=== PATIENT | male | born 1935 | race Caucasian/White ===

== ENCOUNTER → 2016-11-18 | Outpatient (CLI) | payer MEDICARE, OTHER ==
[2016-11-18 10:18] LABS: ALANINE AMINOTRANSFERASE 15 U/L (21-72); ALBUMIN 4.3 g/dL (3.5-5.0); ALKALINE PHOSPHATASE 59 U/L (38-126); ANION GAP 8 (5-19); ASPARTATE AMINO TRANSFERASE 17 U/L (17-59); BILIRUBIN,TOTAL 1.2 mg/dL (0.2-1.3); BLOOD UREA NITROGEN 14 mg/dL (7-20); CALCIUM 8.6 mg/dL (8.4-10.2); CARBON DIOXIDE 30 mmol/L (22-30); CHLORIDE 106 mmol/L (98-107); CHOLESTEROL 124.33 mg/dL (0-200); CREATININE RESULT 1.16 mg/dL (0.52-1.25); Direct HDL 45 mg/dL (>40); GLUCOSE 96 mg/dL (75-110); POTASSIUM 4.8 mmol/L (3.6-5.0); SODIUM 143.8 mmol/L (137-145); TOTAL PROTEIN 6.9 g/dL (6.3-8.2); TRIGLYCERIDES 118 mg/dL (<150)
[2016-11-18 10:29] LABS: DIRECT LDL 53 mg/dL (<100)
== END ==
LOC: OD 08:20
PROVIDERS: ATTEND Internal Medicine
DX: I25.10 Atherosclerotic heart disease of native coronary artery without angina pectoris (principal); Z98.61 Coronary angioplasty status; I10 Essential (primary) hypertension; E78.4 Other hyperlipidemia; I34.0 Nonrheumatic mitral (valve) insufficiency; I35.1 Nonrheumatic aortic (valve) insufficiency; I36.1 Nonrheumatic tricuspid (valve) insufficiency; J44.9 Chronic obstructive pulmonary disease, unspecified; M15.9 Polyosteoarthritis, unspecified; G47.9 Sleep disorder, unspecified; R09.89 Other specified symptoms and signs involving the circulatory and respiratory systems; Z79.899 Other long term (current) drug therapy
CPT/HCPCS: 36415; 80053; 80061

== ENCOUNTER → 2016-12-11 | Outpatient (CLI) | payer MEDICARE, OTHER | LOC: RAD 10:45 | PROVIDERS: ATTEND Specialist | DX: I25.10 Atherosclerotic heart disease of native coronary artery without angina pectoris (principal); I10 Essential (primary) hypertension | CPT/HCPCS: 76706 ==

== ENCOUNTER → 2017-01-20 | Outpatient (CLI) | payer MEDICARE, OTHER ==
[~2017-01-20] MED LIST: ALBUTEROL SULFATE 0.083% NEB 2.5 MG/3 ML AMPUL NEB ONE
--- NOTE | 2017-01-22 13:35 | Pulmonary Function Test ---
Pulmonary Function Test Date of Procedure:: 01/20/17 INDICATION:: Dyspnea Referring Provider: Dr. Ramez Kelly Latex Dipper: Shari Chang DESK OFFICER - Report Spirometry: FVC 3.10 L 91% postbronchodilator therapy 3.14 L 92% FEV1 1.20 L 46% postbronchodilator therapy 1.16 L 44% FEV1/FVC % 39 postbronchodilator therapy 37 predicted 77 Lung Volume: Total lung capacity 5.57 L 95% Vital Capacity 3.10 L 91% IC 2.04 L FRC into 3.53 L 103% ERV 0.27 L RV 2.47 95% RV/TLC % 44 predicted 44 Diffusion Capactity: DLCO 8.1 46% DLCO/VA 2.07 62% Impression: Severe obstructive ventilatory defect with insignificant response to bronchodilator therapy. This does not preclude a clinical trial of bronchodilator therapy. No restrictive ventilatory defect. No hyperinflation. No air trapping. Severe decrease in diffusion capacity.
== END ==
LOC: RT 10:14
PROVIDERS: ATTEND Internal Medicine Pulmonary Disease
DX: J44.9 Chronic obstructive pulmonary disease, unspecified (principal); I10 Essential (primary) hypertension
CPT/HCPCS: 94729; 94727; 94060; A9270

== ENCOUNTER 2018-04-21 15:12 | Inpatient (IN) | payer MEDICARE, OTHER ==
--- NOTE | 2018-04-21 16:20 | ER Document Report ---
ED General - General Chief Complaint: General Weakness Stated Complaint: WEAKNESS Time Seen by Provider: 04/21/18 15:48 Mode of Arrival: Ambulatory Information source: Patient Notes: This is an 82-year-old man with a history of COPD, oxygen dependent, 2 L), coronary artery disease (2 stents, circumflex, RCA) who presents to the emergency room with generalized weakness, shortness of breath, dyspnea on exertion. Patient was seen in Dr. Mckeon's office and referred to the ER for concerns of possible GI bleeding. Patient does state his stools have been dark. TRAVEL OUTSIDE OF THE [place] IN LAST 30 DAYS: No - HPI Onset: Last week Onset/Duration: Gradual Quality of pain: No pain Severity: None Pain Level: Denies Associated symptoms: Shortness of breath. denies: Chest pain, Nonproductive cough, Productive cough Exacerbated by: Movement Relieved by: Remaining still Similar symptoms previously: Yes Recently seen / treated by doctor: Yes - Related Data Allergies/Adverse Reactions: amoxicillin [Amoxicillin] Allergy (Verified 07/30/11 12:59) Past Medical History - General Information source: Patient - Social History Smoking Status: Former Smoker Cigarette use (# per day): No Chew tobacco use (# tins/day): No Frequency of alcohol use: Occasional Drug Abuse: None Lives with: Spouse/Significant other Family History: None Patient has suicidal ideation: No Patient has homicidal ideation: No - Past Medical History Cardiac Medical History: Reports: Hx Hypercholesterolemia, Hx Hypertension Pulmonary Medical History: Reports: Hx COPD Renal/ Medical History: Denies: Hx Peritoneal Dialysis Past Surgical History: Reports: Hx Cardiac Catheterization - Immunizations Hx Diphtheria, Pertussis, Tetanus Vaccination: Yes Review of Systems - Review of Systems Constitutional: denies: Chills, Fever EENT: No symptoms reported Cardiovascular: Orthopnea, Dyspnea. denies: Chest pain, Palpitations Respiratory: See HPI Gastrointestinal: See HPI, Black stools. denies: Abdominal pain Genitourinary: No symptoms reported Male Genitourinary: No symptoms reported Musculoskeletal: No symptoms reported Skin: No symptoms reported Hematologic/Lymphatic: No symptoms reported Neurological/Psychological: Weakness Physical Exam - Vital signs Vitals: Pulse 90 04/21/18 15:22 Notes: Physical exam: GENERAL: 82-year-old man, alert and oriented 3, hard of hearing, does appear short of breath. HEAD: Atraumatic, normocephalic. EYES: Pupils equal round and reactive to light, extraocular movements intact, sclera anicteric, conjunctiva are normal. ENT: TMs normal, nares patent, oropharynx clear without exudates. Moist mucous membranes. NECK: Normal range of motion, supple without obvious mass or JVD. LUNGS: Breath sounds clear to auscultation bilaterally and equal. No wheezes rales or rhonchi. HEART: Regular rate and rhythm without murmurs, rubs or gallops. ABDOMEN: Soft, normoactive bowel sounds. No tenderness to palpation. No guarding, no rebound. No masses appreciated. Rectal: Dark brown stool, sent for study EXTREMITIES: Normal range of motion, no pitting or edema. No clubbing or cyanosis. NEUROLOGICAL: Cranial nerves II through XII grossly intact. Normal speech, moving all extremities. PSYCH: Normal mood, normal affect. SKIN: Warm, Dry, normal turgor, no rashes or lesions noted. Course - Vital Signs Vital signs: Temp Pulse Resp BP Pulse Ox 98.1 F 90 23 H 121/49 L 99 04/21/18 18:55 04/21/18 15:22 04/21/18 19:00 04/21/18 18:53 04/21/18 19:00 - Laboratory Result Diagrams: 04/21/18 16:05 04/21/18 16:05 Laboratory results interpreted by me: 04/21/18 04/21/18 04/21/18 16:05 16:05 16:05 WBC 10.8 H RBC 2.09 L Hgb 7.6 L Hct 22.4 L MCV 107 H MCH 36.5 H RDW 15.0 H BUN 38 H AST 16 L Crossmatch See Detail - EKG Interpretation by Me Rate: Normal Rhythm: NSR - EKG shows normal sinus rhythm with regular rate of 84, left anterior fascicular block, poor R-wave progression Critical Care Note - Critical Care Note Total time excluding time spent on procedures (mins): 60 Discharge - Discharge Clinical Impression: Dyspnea, Symptomatic anemia, GI bleed Condition: Serious Disposition: ADMITTED INPATIENT Admitting Provider: Hospitalist - Dr Samson Unit Admitted: Telemetry
[2018-04-21] MEDS ORDERED: IPRATROPIUM/ALBUTEROL 0.5-2.5 MG/3 ML AMPUL NEB ONE (16:25)
[2018-04-21 16:26] LABS: ABSOLUTE BASOPHILS # (AUTO) 0.1 10^3/uL (0.0-0.2); ABSOLUTE LYMPHOCYTES (AUTO) 2.3 10^3/uL (0.5-4.7); ABSOLUTE NEUT (AUTO) 7.4 10^3/uL (1.7-8.2); BASOPHILS % (AUTO) 0.7 % (0-2); EOSINOPHILS % (AUTO) 0.2 % (0-6); HEMATOCRIT 22.4 % (37.9-51.0); LYMPHOCYTES % (AUTO) 21.8 % (13-45); MEAN CORPUSCULAR HEMOGLOBIN 36.5 pg (27.0-33.4); MEAN CORPUSCULAR VOLUME 107 fl (80-97); MONOCYTES % (AUTO) 8.8 % (3-13); PLATELET COUNT 264 10^3/uL (150-450); RED BLOOD COUNT 2.09 10^6/uL (4.35-5.55); SEGMENTED NEUTROPHILS % (AUTO) 68.5 % (42-78); TOTAL CELLS COUNTED % (AUTO) 100 %; WHITE BLOOD COUNT 10.8 10^3/uL (4.0-10.5)
[2018-04-21 16:31] LABS: HEMOGLOBIN 7.6 g/dL (13.5-17.0)
[2018-04-21 16:39] LABS: ALANINE AMINOTRANSFERASE 21 U/L (21-72); ALBUMIN 4.1 g/dL (3.5-5.0); ALKALINE PHOSPHATASE 59 U/L (38-126); ANION GAP 15 (5-19); ASPARTATE AMINO TRANSFERASE 16 U/L (17-59); BILIRUBIN,DIRECT 0.1 mg/dL (0.0-0.4); BILIRUBIN,TOTAL 0.9 mg/dL (0.2-1.3); BLOOD UREA NITROGEN 38 mg/dL (7-20); CALCIUM 9.4 mg/dL (8.4-10.2); CARBON DIOXIDE 24 mmol/L (22-30); CHLORIDE 102 mmol/L (98-107); CREATINE KINASE 90 U/L (55-170); GLUCOSE 108 mg/dL (75-110); POTASSIUM 4.7 mmol/L (3.6-5.0); SODIUM 141.2 mmol/L (137-145); TOTAL PROTEIN 6.8 g/dL (6.3-8.2)
--- NOTE | 2018-04-21 16:46 | RADIOLOGY REPORT (SQ) ---
EXAM DESCRIPTION: CHEST SINGLE VIEW COMPLETED DATE/TIME: 04/21/2018 4:39 pm REASON FOR STUDY: sob COMPARISON: None. NUMBER OF VIEWS: One view. TECHNIQUE: Single frontal radiographic view of the chest acquired. LIMITATIONS: None. FINDINGS: LUNGS AND PLEURA: No opacities, masses or pneumothorax. No pleural effusion. Attenuated bl ood vessels and flattened marvin-diaphragms. MEDIASTINUM AND HILAR STRUCTURES: No masses. Contour normal. HEART AND VASCULAR STRUCTURES: Heart normal in size. Normal vasculature. BONES: No acute findings. HARDWARE: None in the chest. OTHER: No other significant finding. IMPRESSION: COPD. NO ACUTE RADIOGRAPHIC FINDING IN THE CHEST. TECHNICAL DOCUMENTATION: JOB ID: [id number] [employer]- All Rights Reserved Reading location - IP/workstation name: [email or web address]
[2018-04-21 16:50] LABS: CREATINE KINASE MB 0.98 ng/mL (<4.55)
[2018-04-21 16:52] LABS: TROPONIN I < 0.012 ng/mL
[2018-04-21] MEDS ORDERED: NORMAL SALINE 250 ML IV PRN ×2 (16:54)
[2018-04-21] MEDS ORDERED: PROMETHAZINE HCL INJ 25 MG/1 ML VIAL IV PRN (18:22)
[2018-04-21] MEDS ORDERED: GLUCAGON,HUMAN RECOMB 1 MG INJ SUBCUT PRN (18:22)
[2018-04-21] MEDS ORDERED: ACETAMINOPHEN 325 MG TABLET PO PRN (18:22)
[2018-04-21] MEDS ORDERED: DEXTROSE 50%-WATER 25 GM/50 ML DISP.SYRIN IV PRN ×2 (18:22)
[2018-04-21] MEDS ORDERED: DEXTROSE 40% GEL 15 GM TUBE PO PRN ×2 (18:22)
[2018-04-21] MEDS ORDERED: PANTOPRAZOLE SODIUM 40 MG VIAL IV SCH (18:30)
--- NOTE | 2018-04-21 18:40 | PDOC H&P ---
History of Present Illness Admission Date/PCP: 04/21/18 18:12 GI PHOENIX MD History of Present Illness: LOU ROJAS is a 82 year old male whose past medical history of dependent end-stage lung disease, COPD, coronary artery disease status post stent placement and hypertension presents with chief complaint of shortness of breath. For the above-mentioned complaint patient initially seen his primary care physician Dr. Mckeon who directed him to come to ER after they found his hemoglobin and hematocrits are low and was a suspicion of GI bleeding. Patient endorses shortness of breath which is getting worse and precipitated by mild exertion. He also is also dark tarry stool. He denies any nausea, sweating, cough, chest pain,. No urinary complaints he has associated dizziness but denies blurring of vision or any seizure activity. His blood work shows hemoglobin of 7.6. Past Medical History Cardiac Medical History: Reports: Hyperlipidema, Hypertension Pulmonary Medical History: Reports: Chronic Obstructive Pulmonary Disease (COPD) Hematology: Reports: Anemia Social History Smoking Status: Former Smoker Frequency of Alcohol Use: None Hx Recreational Drug Use: No Drugs: None - Advance Directive Resuscitation Status: Full Code Family History Family History: Reviewed & Not Pertinent Parental Family History Reviewed: Yes Children Family History Reviewed: Yes Sibling(s) Family History Reviewed.: Yes Medication/Allergy Home Medications: Aspirin [Aspirin 81 mg Chewable Tablet] 81 mg PO DAILY 07/30/11 Atorvastatin Calcium [Lipitor 40 Mg Tablet] 40 mg PO QHS 07/30/11 Clopidogrel Bisulfate [Plavix 75 Mg Tablet] 75 mg PO DAILY 07/30/11 Ezetimibe [Zetia 10 Mg Tablet] 10 mg PO DAILY 07/30/11 Felodipine [Plendil] 5 mg PO BID 07/30/11 Flaxseed Oil 4,000 mg PO DAILY 07/30/11 Guaifenesin [Mucinex Sr 600 Mg Tablet.Sa] 600 mg PO ASDIR PRN 07/30/11 Ipratropium/Albuterol Sulfate [Combivent Mdi 14.7 Gm Inhaler] 2 puff IH Q6 07/30 Lisinopril [Prinivil] 20 mg PO DAILY 07/30/11 Nitroglycerin [Nitro-Dur 5 mg (0.2 mg/Hr) Transdermal Patch] 1 patch TD QAM 10/09 Nitroglycerin [Nitrostat 0.4 mg (1/150 Gr) Tabs 25/Bottle] 0.4 mg SL PRN PRN 10/09 Vitamin E [Formula E] 400 unit PO DAILY 07/30/11 Allergies/Adverse Reactions: amoxicillin [Amoxicillin] Allergy (Verified 07/30/11 12:59) Review of Systems Constitutional: ABSENT: chills, fever(s), headache(s), weight gain, weight loss Eyes: ABSENT: visual disturbances Ears: ABSENT: hearing changes Cardiovascular: PRESENT: dyspnea on exertion. ABSENT: edema, orthropnea, palpitations Respiratory: ABSENT: cough, hemoptysis Gastrointestinal: PRESENT: melena. ABSENT: abdominal pain, constipation, diarrhea, hematemesis, hematochezia, nausea, vomiting Genitourinary: ABSENT: dysuria, hematuria Musculoskeletal: ABSENT: joint swelling Integumentary: ABSENT: rash, wounds Neurological: ABSENT: abnormal gait, abnormal speech, confusion, dizziness, focal weakness, syncope Psychiatric: ABSENT: anxiety, depression, homidical ideation, suicidal ideation Endocrine: ABSENT: cold intolerance, heat intolerance, polydipsia, polyuria Hematologic/Lymphatic: ABSENT: easy bleeding, easy bruising Physical Exam Vital Signs: Temp Pulse Resp BP Pulse Ox 90 94 04/21/18 15:22 04/21/18 16:12 Intake & Output 04/20/18 04/21/18 04/22/18 06:59 06:59 06:59 Weight 81.5 kg General appearance: PRESENT: hard of hearing, mild distress Eye exam: PRESENT: conjunctiva pale Mouth exam: PRESENT: dry mucosa Neck exam: ABSENT: carotid bruit, JVD, lymphadenopathy, thyromegaly Respiratory exam: PRESENT: clear to auscultation carmelita. ABSENT: rales, rhonchi, wheezes Cardiovascular exam: PRESENT: RRR. ABSENT: diastolic murmur, rubs, systolic murmur GI/Abdominal exam: PRESENT: normal bowel sounds, soft. ABSENT: distended, guarding, mass, organolmegaly, rebound, tenderness Rectal exam: PRESENT: heme (+) stool Neurological exam: PRESENT: alert, awake, oriented to time, oriented to situation Results Impressions: Chest X-Ray 04/21/18 16:12 IMPRESSION: COPD. NO ACUTE RADIOGRAPHIC FINDING IN THE CHEST. Assessment & Plan - Diagnosis (1) Acute blood loss anemia due to GI bleed Is this a current diagnosis for this admission?: Yes Plan: Patient is going to be transfused packed RBC. Daily CBC. Protonix infusion. GI consulted. (2) COPD (chronic obstructive pulmonary disease) Qualifiers: Emphysema type: unspecified Is this a current diagnosis for this admission?: Yes Plan: As needed bronchodilator. (3) Hypertension Qualifiers: Hypertension type: essential hypertension Qualified Code(s): I10 - Essential (primary) hypertension Is this a current diagnosis for this admission?: Yes Plan: Hold antihypertensive for now (4) Hyperlipidemia Qualifiers: Hyperlipidemia type: unspecified Qualified Code(s): E78.5 - Hyperlipidemia , unspecified Is this a current diagnosis for this admission?: Yes Plan: Continue home statin (5) Coronary artery disease Is this a current diagnosis for this admission?: Yes Plan: Stable no angina.
--- NOTE | 2018-04-21 19:06 | PDOC CONSULTATION ---
Consultation Consult Date: 04/21/18 Attending physician:: ELVIS KUMAR Consult reason:: melena History of Present Illness Admission Date/PCP: GI PHOEN[facility] MD History of Present Illness: LOU ROJAS is a 82 year old male Asked to see this patient who present from Dr Phoenix' office for concerns of possible GI bleeding patient has had cardiac stents placed in the past unclear if he is still on dual anticoagulant therapy, on his med list he should be on Plavix hgb is 7.2 with complaints of dark stool some SOB present, denies any chest pain is going to be admitted from the ED will need to have GI work up done after stabilization likely would need to have a PPI started possible transfusion as well patient denies any rectal bleeding has an elevated BUN to creatinine ratio also has heme positive stools I have not seen this patient prior to this, unclear if he has any sort of GI work up in the past will need to get records if needed Past Medical History Cardiac Medical History: Reports: Hyperlipidema, Hypertension Pulmonary Medical History: Reports: Chronic Obstructive Pulmonary Disease (COPD) Hematology: Reports: Anemia Social History Smoking Status: Former Smoker Family History Parental Family History Reviewed: Yes Children Family History Reviewed: Unknown Sibling(s) Family History Reviewed.: Unknown Medication/Allergy Home Medications: Aspirin [Aspirin 81 mg Chewable Tablet] 81 mg PO DAILY 07/30/11 Atorvastatin Calcium [Lipitor 40 Mg Tablet] 40 mg PO QHS 07/30/11 Clopidogrel Bisulfate [Plavix 75 Mg Tablet] 75 mg PO DAILY 07/30/11 Ezetimibe [Zetia 10 Mg Tablet] 10 mg PO DAILY 07/30/11 Felodipine [Plendil] 5 mg PO BID 07/30/11 Flaxseed Oil 4,000 mg PO DAILY 07/30/11 Guaifenesin [Mucinex Sr 600 Mg Tablet.Sa] 600 mg PO ASDIR PRN 07/30/11 Ipratropium/Albuterol Sulfate [Combivent Mdi 14.7 Gm Inhaler] 2 puff IH Q6 07/30 Lisinopril [Prinivil] 20 mg PO DAILY 07/30/11 Nitroglycerin [Nitro-Dur 5 mg (0.2 mg/Hr) Transdermal Patch] 1 patch TD QAM 10/09 Nitroglycerin [Nitrostat 0.4 mg (1/150 Gr) Tabs 25/Bottle] 0.4 mg SL PRN PRN 10/09 Vitamin E [Formula E] 400 unit PO DAILY 07/30/11 Allergies/Adverse Reactions: amoxicillin [Amoxicillin] Allergy (Verified 07/30/11 12:59) Review of Systems Constitutional: PRESENT: weakness. ABSENT: fever(s), headache(s), night sweats Eyes: ABSENT: visual disturbances Ears: ABSENT: hearing changes Nose, Mouth, and Throat: ABSENT: mouth pain, sore throat Cardiovascular: ABSENT: edema, orthropnea Respiratory: ABSENT: dyspnea, hemoptysis Gastrointestinal: PRESENT: melena. ABSENT: dysphagia, hematochezia Genitourinary: ABSENT: dysuria, hematuria Musculoskeletal: ABSENT: deformity Neurological: ABSENT: syncope, tingling, tremor(s), vertigo Endocrine: ABSENT: polydipsia, polyphagia, polyuria Hematologic/Lymphatic: ABSENT: easy bruising Physical Exam Vital Signs: Temp Pulse Resp BP Pulse Ox 90 04/21/18 15:22 General appearance: PRESENT: no acute distress, well-developed, well-nourished Head exam: PRESENT: atraumatic, normocephalic Eye exam: PRESENT: EOMI, PERRLA. ABSENT: nystagmus, periorbital swelling, scleral icterus Mouth exam: PRESENT: moist, neck supple Throat exam: ABSENT: tonsillar exudate, tonsillogmegaly Neck exam: ABSENT: meningismus, tenderness, thyromegaly Respiratory exam: PRESENT: symmetrical, unlabored. ABSENT: tachypnea, wheezes Cardiovascular exam: PRESENT: +S1, +S2 GI/Abdominal exam: PRESENT: soft. ABSENT: rebound, rigid, tenderness Extremities exam: ABSENT: joint swelling Musculoskeletal exam: PRESENT: full ROM Neurological exam: PRESENT: oriented to time, oriented to situation, CN II-XII grossly intact Focused psych exam: ABSENT: restlessness Skin exam: PRESENT: normal color. ABSENT: mottled, pallor, urticaria, vesicles Results Laboratory Results: 04/21/18 16:05 04/21/18 16:05 04/21/18 04/21/18 04/21/18 16:05 16:05 16:05 WBC 10.8 H RBC 2.09 L Hgb 7.6 L Hct 22.4 L MCV 107 H MCH 36.5 H MCHC 34.0 RDW 15.0 H Plt Count 264 Seg Neutrophils % 68.5 Lymphocytes % 21.8 Monocytes % 8.8 Eosinophils % 0.2 Basophils % 0.7 Absolute Neutrophils 7.4 Absolute Lymphocytes 2.3 Absolute Monocytes 1.0 Absolute Eosinophils 0.0 Absolute Basophils 0.1 Sodium 141.2 Potassium 4.7 Chloride 102 Carbon Dioxide 24 Anion Gap 15 BUN 38 H Creatinine 1.15 Est GFR ( Amer) > 60 Est GFR (Non-Af Amer) > 60 Glucose 108 Calcium 9.4 Total Bilirubin 0.9 AST 16 L ALT 21 Alkaline Phosphatase 59 Total Protein 6.8 Albumin 4.1 Stool Occult Blood POSITIVE 04/21/18 04/21/18 04/21/18 16:05 16:05 16:05 Creatine Kinase 90 CK-MB (CK-2) 0.98 Troponin I < 0.012 NT-Pro-B Natriuret Pep 159 Impressions: Chest X-Ray 04/21/18 16:12 IMPRESSION: COPD. NO ACUTE RADIOGRAPHIC FINDING IN THE CHEST. Assessment & Plan - Diagnosis (1) Melena Plan: agree with admission follow serial H/H low threshold for transfusion since had CAD with stents would make sure troponin is normal COPD would need to be stabilized as well has elevated BUN with normal creatinine heme positive stools as well as symptoms of dark stools would try to get old records of any previous procedure done will need EGD Risks, benefits and alternatives are discussed with the patient in detail further recommendations to follow he will need a PPI drip or oral PPI to start - Time Time Spent: 50 to 70 Minutes
[2018-04-21] MEDS: IPRATROPIUM/ALBUTEROL 0.5-2.5 MG/3 ML AMPUL NEB SCH (20:06)
--- NOTE | 2018-04-22 00:18 | EKG REPORT ---
SEVERITY:- ABNORMAL ECG - SINUS RHYTHM LEFT ANTERIOR FASCICULAR BLOCK ABNRM R PROG, CONSIDER ASMI OR LEAD PLACEMENT : Confirmed by: Lilly Willis MD 22-Apr-2018 00:17:25
[2018-04-22] MEDS: IPRATROPIUM/ALBUTEROL 0.5-2.5 MG/3 ML AMPUL NEB SCH ×3 (02:08→13:13)
[2018-04-22] MEDS ORDERED: PANTOPRAZOLE SODIUM 40 MG VIAL IV ONE (04:41)
[2018-04-22 05:14] LABS: ABSOLUTE BASOPHILS # (AUTO) 0.1 10^3/uL (0.0-0.2); ABSOLUTE LYMPHOCYTES (AUTO) 2.2 10^3/uL (0.5-4.7); ABSOLUTE MONOCYTES (AUTO) 0.8 10^3/uL (0.1-1.4); ABSOLUTE NEUT (AUTO) 4.6 10^3/uL (1.7-8.2); BASOPHILS % (AUTO) 0.9 % (0-2); EOSINOPHILS % (AUTO) 0.5 % (0-6); HEMATOCRIT 26.4 % (37.9-51.0); HEMOGLOBIN 9.1 g/dL (13.5-17.0); LYMPHOCYTES % (AUTO) 28.3 % (13-45); MEAN CORPUSCULAR HEMOGLOBIN 33.3 pg (27.0-33.4); MEAN CORPUSCULAR HGB CONC 34.6 g/dL (32.0-36.0); MONOCYTES % (AUTO) 10.3 % (3-13); PLATELET COUNT 203 10^3/uL (150-450); RED BLOOD COUNT 2.74 10^6/uL (4.35-5.55); RED CELL DISTRIBUTION WIDTH 23.3 % (11.5-14.0); TOTAL CELLS COUNTED % (AUTO) 100 %; WHITE BLOOD COUNT 7.7 10^3/uL (4.0-10.5)
[2018-04-22 05:21] LABS: MEAN CORPUSCULAR VOLUME 96 fl (80-97)
[2018-04-22 05:26] LABS: ANION GAP 10 (5-19); BLOOD UREA NITROGEN 38 mg/dL (7-20); CALCIUM 8.7 mg/dL (8.4-10.2); CARBON DIOXIDE 27 mmol/L (22-30); CHLORIDE 104 mmol/L (98-107); GLUCOSE 111 mg/dL (75-110); POTASSIUM 4.6 mmol/L (3.6-5.0); SODIUM 141.1 mmol/L (137-145)
[2018-04-22 05:48] LABS: ACANTHOCYTES SLIGHT; ANISOCYTOSIS 3+; OVALOCYTES SLIGHT; TEAR DROP CELLS SLIGHT
[2018-04-22 05:49] LABS: PLATELET COMMENT ADEQUATE
[2018-04-22] MEDS ORDERED: PROPOFOL INJ 200 MG/20 ML VIAL IV ONE (09:56)
[2018-04-22] MEDS ORDERED: FENTANYL CITRATE INJ/PF 100 MCG/2 ML AMPUL IV PRN ×3 (10:15)
[2018-04-22] MEDS ORDERED: DIPHENHYDRAMINE HCL 50 MG/ML VIAL IV PRN (10:15)
[2018-04-22] MEDS ORDERED: OXYCODONE-ACETAMINOPHEN 5-325 MG TABLET PO PRN ×2 (10:15)
[2018-04-22] MEDS ORDERED: MORPHINE SULFATE 10 MG/ML INJ IV PRN (10:15)
[2018-04-22] MEDS ORDERED: MEPERIDINE HCL/PF INJ 25 MG/1 ML DISP.SYRIN IV PRN (10:15)
[2018-04-22] MEDS ORDERED: PROMETHAZINE HCL INJ 25 MG/1 ML VIAL IV PRN ×2 (10:15)
--- NOTE | 2018-04-22 12:48 | Operative Report ---
Operative Report DATE OF SURGERY: 04/22/18 Operative Report: The risks benefits and alternatives of the procedure explained to the patient in detail and informed consent is obtained.A GIF Olympus video scope was inserted into the patient's mouth and hypopharynx, the esophagus is identified intubated and insufflated, the scope was then advanced through the esophagus stomach and duodenum, retroflexion maneuver is done ,the esophagus stomach and first and second portions of the duodenum examined PREOPERATIVE DIAGNOSIS: GI bleeding, melena POSTOPERATIVE DIAGNOSIS: Clean base esophageal ulcer; not actively bleeding. Hiatal hernia. Nodular gastritis status post biopsy. Gastric AVM, that is bleeding controlled hemorrhage done with argon plasma chinese medicine practitioner. Clean based duodenal ulcers; not actively bleeding OPERATION: EGD with control of hemorrhage. EGD with biopsy SURGEON: ELVIS KUMAR ANESTHESIA: LMAC TISSUE REMOVED OR ALTERED: As noted above. COMPLICATIONS: None. ESTIMATED BLOOD LOSS: None. INTRAOPERATIVE FINDINGS: As noted above. PROCEDURE: Patient tolerated procedure well. No immediate postprocedure comp occasions are noted. Patient sent back to his room in good condition. Diet: Clears and advance as tolerated We will wait on biopsies Continue PPI Watch H&H Transfuse as necessary Follow-up EGD in 6-8 weeks
[2018-04-22 14:32] VITALS: BP 134/64
[2018-04-22] MEDS ORDERED: PANTOPRAZOLE SODIUM 80 MG in NORMAL SALINE 100 ML IV ONE (14:45)
[2018-04-22] MEDS ORDERED: NORMAL SALINE 100 ML with PANTOPRAZOLE SODIUM 80 MG IV PRN ×2 (14:45)
--- NOTE | 2018-04-22 14:54 | PDOC DISCHARGE SUMMARY ---
General - Admit/Disc Date/PCP Admission Date/Primary Care Provider: 04/21/18 18:12 GI PHOENIX MD Discharge Date: 04/22/18 - Discharge Diagnosis (1) Acute blood loss anemia due to GI bleed Is this a current diagnosis for this admission?: Yes (2) COPD (chronic obstructive pulmonary disease) Is this a current diagnosis for this admission?: Yes (3) Hypertension Is this a current diagnosis for this admission?: Yes (4) Hyperlipidemia Is this a current diagnosis for this admission?: Yes (5) Coronary artery disease Is this a current diagnosis for this admission?: Yes - Additional Information Resuscitation Status: Full Code Home Medications: Aspirin [Aspirin 81 mg Chewable Tablet] 81 mg PO QHS 07/30/11 Atorvastatin Calcium [Lipitor 40 Mg Tablet] 40 mg PO QHS 07/30/11 Ezetimibe [Zetia 10 Mg Tablet] 10 mg PO QAM 07/30/11 Felodipine [Plendil] 5 mg PO DAILY 07/30/11 Lisinopril [Prinivil] 20 mg PO DAILY 07/30/11 Nitroglycerin [Nitro-Dur 5 mg (0.2 mg/Hr) Transdermal Patch] 1 patch TD QAM 10/09 Vitamin E [Formula E] 400 unit PO DAILY 07/30/11 Albuterol Sulfate [Proair Hfa Inhalation Aerosol 8.5 gm Mdi] 2 puff IH Q4HP PRN 04/21/18 Cyanocobalamin (Vitamin B-12) [Vitamin B-12 1000 Mcg Tablet] 1,000 mcg PO DAILY 04/21/18 Furosemide [Lasix 20 mg Tablet] 20 mg PO QAM 04/21/18 Ipratropium [place] 2 puff NASL DAILYP PRN 04/21/18 Montelukast Sodium [Singulair 10 mg Tablet] 10 mg PO QAM 04/21/18 Nitroglycerin [Nitrostat 0.4 mg (1/150 Gr) Tabs 25/Bottle] 1 tab SL Q5MP PRN Tiotropium Br/Olodaterol HCl [Stiolto Respimat Inhal [place]] 2 puff IH DAILY History of Present Illness History of Present Illness: LOU ROJAS is a 82 year old male whose past medical history of dependent end-stage lung disease, COPD, coronary artery disease status post stent placement and hypertension presents with chief complaint of shortness of breath. For the above-mentioned complaint patient initially seen his primary care physician Dr. Mckeon who directed him to come to ER after they found his hemoglobin and hematocrits are low and was a suspicion of GI bleeding. Patient endorses shortness of breath which is getting worse and precipitated by mild exertion. He also is also dark tarry stool. He denies any nausea, sweating, cough, chest pain,. No urinary complaints he has associated dizziness but denies blurring of vision or any seizure activity. His blood work shows hemoglobin of 7.6. Hospital Course Hospital Course: LOU ROJAS is a 82 year old male whose past medical history of dependent end-stage lung disease, COPD, coronary artery disease status post stent placement and hypertension presents with chief complaint of shortness of breath. For the above-mentioned complaint patient initially seen his primary care physician Dr. Mckeon who directed him to come to ER after they found his hemoglobin and hematocrits are low and was a suspicion of GI bleeding. Patient states he has melanotic stool. Stool for occult blood is positive. His hemoglobin found to be 7.6. Patient had been transfused with 2 units of PRBC. Patient also has been managed with Protonix drip. This morning he has EGD done by Dr. Ramires and he reports is a finding as clear to base esophageal ulcer. Nodular gastritis status post biopsy. Gastric AVM that is bleeding controlled hemorrhage with argon plasma director process engineering. After 2 units of PRBC now his hemoglobin is 9.1. I seen patient sitting up by the bedside chatting with his . He is not in pain or any form of distress and he is eager to go home. Dr. Rivero also cleared him for discharge. I will send him home with Protonix 40 mg p.o. daily and continue his medications. Physical Exam Vital Signs: Temp Pulse Resp BP Pulse Ox 97.8 F 86 15 134/64 H 100 04/22/18 14:28 04/22/18 14:41 04/22/18 14:28 04/22/18 14:28 04/22/18 14:28 Intake & Output 04/21/18 04/22/18 04/23/18 06:59 06:59 06:59 Intake Total 600 350 Output Total 0 Balance 600 350 Weight 81.5 kg 78.7 kg General appearance: PRESENT: no acute distress, well-developed Head exam: PRESENT: atraumatic, normocephalic Eye exam: PRESENT: conjunctiva pink. ABSENT: scleral icterus Mouth exam: PRESENT: moist Neck exam: PRESENT: carotid bruit Respiratory exam: PRESENT: clear to auscultation carmelita. ABSENT: rales, rhonchi, wheezes Cardiovascular exam: PRESENT: RRR. ABSENT: diastolic murmur, rubs, systolic murmur Pulses: PRESENT: normal dorsalis pedis pul Vascular exam: PRESENT: normal capillary refill GI/Abdominal exam: PRESENT: normal bowel sounds, soft. ABSENT: distended, guarding, mass, organolmegaly, rebound, tenderness Rectal exam: PRESENT: deferred Extremities exam: PRESENT: full ROM. ABSENT: calf tenderness, clubbing, pedal edema Neurological exam: PRESENT: alert, awake, oriented to person, oriented to place , oriented to time, oriented to situation Psychiatric exam: PRESENT: appropriate affect, normal mood Skin exam: PRESENT: dry, intact, warm. ABSENT: cyanosis, rash Results Laboratory Results: 04/22/18 04:50 04/22/18 04:50 04/22/18 04/22/18 04:50 04:50 WBC 7.7 RBC 2.74 L Hgb 9.1 L Hct 26.4 L MCV 96 D MCH 33.3 MCHC 34.6 RDW 23.3 H Plt Count 203 Seg Neutrophils % 60.0 Lymphocytes % 28.3 Monocytes % 10.3 Eosinophils % 0.5 Basophils % 0.9 Absolute Neutrophils 4.6 Absolute Lymphocytes 2.2 Absolute Monocytes 0.8 Absolute Eosinophils 0.0 Absolute Basophils 0.1 Sodium 141.1 Potassium 4.6 Chloride 104 Carbon Dioxide 27 Anion Gap 10 BUN 38 H Creatinine 1.24 Est GFR ( Amer) > 60 Est GFR (Non-Af Amer) 56 L Glucose 111 H Calcium 8.7 04/21/18 20:30 Troponin I < 0.012 Impressions: Chest X-Ray 04/21/18 16:12 IMPRESSION: COPD. NO ACUTE RADIOGRAPHIC FINDING IN THE CHEST. Qualifiers - * PATIENT BEING DISCHARGED WITH ANY OF THE FOLLOWING DIAGNOSIS: No
== END 2018-04-22 15:41 | disposition home or self-care (01) | DRG 378 ==
LOC: ER 15:12 → EH 18:12 → 3W 04-22 14:13
PROVIDERS: ADMIT Internal Medicine; ATTEND Internal Medicine
PROC: 30233N1 Transfusion of Nonautologous Red Blood Cells into Peripheral Vein, Percutaneous Approach (ICD-10-PCS; 2018-04-21)
PROC: 0W3P8ZZ Control Bleeding in Gastrointestinal Tract, Via Natural or Artificial Opening Endoscopic (ICD-10-PCS; principal; 2018-04-22 09:45)
PROC: 0DB68ZX Excision of Stomach, Via Natural or Artificial Opening Endoscopic, Diagnostic (ICD-10-PCS; 2018-04-22 09:45)
DX: K55.21 Angiodysplasia of colon with hemorrhage (principal); D62 Acute posthemorrhagic anemia; K22.10 Ulcer of esophagus without bleeding; K44.9 Diaphragmatic hernia without obstruction or gangrene; K29.60 Other gastritis without bleeding; K26.9 Duodenal ulcer, unspecified as acute or chronic, without hemorrhage or perforation; E78.5 Hyperlipidemia, unspecified; I10 Essential (primary) hypertension; J44.9 Chronic obstructive pulmonary disease, unspecified; I25.10 Atherosclerotic heart disease of native coronary artery without angina pectoris; Z87.891 Personal history of nicotine dependence; Z88.0 Allergy status to penicillin; Z79.82 Long term (current) use of aspirin; Z95.5 Presence of coronary angioplasty implant and graft
CPT/HCPCS: 36415; 36430; 43239; 43255; 71045; 731; 80048; 80053; 82272; 82550; 82553; 83880; 84484; 85025; 86850; 86900; 86901; 86920; 88305; 88342; 93005; 93010; 94640; 99291; J2704; J7620; P9016

== ENCOUNTER 2018-05-11 14:29 | Inpatient (IN) | payer MEDICARE, OTHER ==
[2018-05-11] MEDS ORDERED: NORMAL SALINE 1000 ML 1,000 ML IV ONE (15:12)
--- NOTE | 2018-05-11 15:14 | ER Document Report ---
ED Medical Screen (RME) - General Chief Complaint: Low Blood Pressure Stated Complaint: BLOOD PRESSURE ISSUES Time Seen by Provider: 05/11/18 15:08 Notes: 82-year-old male who was sent over by his dean of admissions for low blood pressure. The patient recently got out of the hospital with bleeding ulcers. Dr. Houser had done an EGD. The patient started a new medicine Dexilant on Friday. Again feeling poorly on Friday. A lot of weakness a lot of fatigue denies chest pain or shortness of breath denies abdominal pain. Patient's blood pressure was noted to be low. They called Dr. Knight the patient's dean of admissions who directed him to come to the ER with a concern he may be bleeding still internally. TRAVEL OUTSIDE OF THE [place] IN LAST 30 DAYS: No - Related Data Allergies/Adverse Reactions: amoxicillin [Amoxicillin] Allergy (Verified 04/21/18 21:50) levofloxacin [From Levaquin] Allergy (Verified 05/11/18 15:11) Past Medical History - Past Medical History Cardiac Medical History: Reports: Hx Hypercholesterolemia, Hx Hypertension Pulmonary Medical History: Reports: Hx COPD Renal/ Medical History: Denies: Hx Peritoneal Dialysis Past Surgical History: Reports: Hx Cardiac Catheterization - Immunizations Hx Diphtheria, Pertussis, Tetanus Vaccination: Yes History of Influenza Vaccine for 06/2017 - 11/2017 Season: Unknown Physical Exam - Vital signs Vitals: Temp Pulse Resp BP Pulse Ox 98.4 F 94 16 92/49 L 95 05/11/18 14:38 05/11/18 14:38 05/11/18 14:38 05/11/18 14:38 05/11/18 14:38 - Notes Notes: Abdomen is soft and supple no rebound or guarding is noted skin is multiple chronic changes. Noted patient has no unilateral motor or sensory deficits cranial nerves are intact. Course - Re-evaluation Re-evalutation: 05/11/18 15:14 We will begin a evaluation will check hemoglobin to see if it is dropped since last admission EKG enzymes. We will give him a liter of IV fluid for low blood pressure. Patient is usually very hypertensive requiring blood pressure medications however that has not been the case today he did not take his blood pressure medicines today. - Vital Signs Vital signs: Temp Pulse Resp BP Pulse Ox 98.4 F 94 16 92/49 L 95 05/11/18 14:38 05/11/18 14:38 05/11/18 14:38 05/11/18 14:38 05/11/18 14:38 Doctor's Discharge - Discharge Referrals: GI PHOENIX MD [Primary Care Provider] - Follow up as needed
--- NOTE | 2018-05-11 15:57 | ER Document Report ---
ED General - General Chief Complaint: Low Blood Pressure Stated Complaint: BLOOD PRESSURE ISSUES Time Seen by Provider: 05/11/18 15:08 TRAVEL OUTSIDE OF THE [place] IN LAST 30 DAYS: No - HPI Notes: 82-year-old male was admitted last month for GI bleed. Was initially evaluated for shortness of breath and found to have a hemoglobin of 7.6. He was transfused 2 units and hemoglobin increased to 9.1. EGD by Dr. 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 He was changed from Protonix to Dexilant which he started 2 days ago. Yesterday, he developed shaking chills and had a fever of 102. He has had generalized weakness and lightheadedness. He was found to have low blood pressure today 89/45. 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 He denies any continued bleeding in stools or melena. No nausea, abdominal pain, vomiting. Denies chest pain. He has chronic shortness of breath and cough from COPD that is unchanged. He has not had a fever today. - Related Data Allergies/Adverse Reactions: amoxicillin [Amoxicillin] Allergy (Verified 04/21/18 21:50) levofloxacin [From Levaquin] Allergy (Verified 05/11/18 15:11) Past Medical History - Social History Smoking Status: Former Smoker Frequency of alcohol use: 2 drinks a week Drug Abuse: None Family History: None Patient has suicidal ideation: No Patient has homicidal ideation: No - Past Medical History Cardiac Medical History: Reports: Hx Hypercholesterolemia, Hx Hypertension Pulmonary Medical History: Reports: Hx COPD Renal/ Medical History: Denies: Hx Peritoneal Dialysis Past Surgical History: Reports: Hx Cardiac Catheterization - Immunizations Hx Diphtheria, Pertussis, Tetanus Vaccination: Yes Physical Exam - Vital signs Vitals: Temp Pulse Resp BP Pulse Ox 98.4 F 94 16 92/49 L 95 05/11/18 14:38 05/11/18 14:38 05/11/18 14:38 05/11/18 14:38 05/11/18 14:38 Course - Re-evaluation Re-evalutation: 05/11/18 17:00 Patient has leukocytosis and mild elevation of lactic acid at 2.4. X-ray shows bilateral infiltrates, worse on the left. Treated with Rocephin and Zithromax. Fluids ordered. Blood pressure improved. Discussed with hospitalist for admission. Patient and spouse updated. - Vital Signs Vital signs: Temp Pulse Resp BP Pulse Ox 98.4 F 94 16 92/49 L 95 05/11/18 14:38 05/11/18 14:38 05/11/18 14:38 05/11/18 14:38 05/11/18 14:38 - Laboratory Result Diagrams: 05/11/18 15:45 05/11/18 15:45 Laboratory results interpreted by me: 05/11/18 05/11/18 05/11/18 15:45 15:45 15:45 WBC 14.6 H RBC 2.88 L Hgb 9.0 L Hct 27.5 L RDW 19.0 H Seg Neutrophils % 80.3 H Lymphocytes % 10.8 L Absolute Neutrophils 11.7 H BUN 23 H Creatinine 1.41 H Est GFR ( Amer) 58 L Est GFR (Non-Af Amer) 48 L Glucose 114 H Lactic Acid 2.4 H Total Bilirubin 2.0 H AST 14 L ALT 11 L Discharge - Discharge Clinical Impression: Sepsis Qualifiers: Sepsis type: sepsis due to unspecified organism Qualified Code(s): A41.9 - Sepsis, unspecified organism Pneumonia Qualifiers: Pneumonia type: due to unspecified organism Laterality: bilateral Lung location : unspecified part of lung Qualified Code(s): J18.9 - Pneumonia, unspecified organism Condition: Fair Disposition: ADMITTED INPATIENT Admitting Provider: Hospitalist Unit Admitted: IMCU Referrals: GI PHOENIX MD [Primary Care Provider] - Follow up as needed
--- NOTE | 2018-05-11 16:11 | RADIOLOGY REPORT (SQ) ---
EXAM DESCRIPTION: CHEST 2 VIEWS COMPLETED DATE/TIME: 05/11/2018 4:02 pm REASON FOR STUDY: fever, sepsis COMPARISON: 05/04/2011 EXAM PARAMETERS: NUMBER OF VIEWS: two views TECHNIQUE: Digital Frontal and Lateral radiographic views of the chest acquired. RADIATION DOSE: NA LIMITATIONS: none FINDINGS: LUNGS AND PLEURA: Multifocal airspace and interstitial disease in the mid-lower lung zone s bilaterally, more so on the left. Considerations for these findings include infiltrates. No pneum othorax or pleural effusion. MEDIASTINUM AND HILAR STRUCTURES: No masses or contour abnormalities. HEART AND VASCULAR STRUCTURES: Heart normal size. No evidence for failure. BONES: No acute findings. HARDWARE: None in the chest. OTHER: No other significant finding. IMPRESSION: 1 Multifocal patchy airspace and interstitial disease in the mid-lower lung zones, more so on the left, findings suggest infiltrates. TECHNICAL DOCUMENTATION: JOB ID: [id number] [email or web address]- All Rights Reserved Reading location - IP/workstation name: [email or web address]
[2018-05-11 16:25] LABS: ABSOLUTE BASOPHILS # (AUTO) 0.1 10^3/uL (0.0-0.2); ABSOLUTE LYMPHOCYTES (AUTO) 1.6 10^3/uL (0.5-4.7); ABSOLUTE MONOCYTES (AUTO) 1.2 10^3/uL (0.1-1.4); ABSOLUTE NEUT (AUTO) 11.7 10^3/uL (1.7-8.2); BASOPHILS % (AUTO) 0.4 % (0-2); EOSINOPHILS % (AUTO) 0.1 % (0-6); HEMATOCRIT 27.5 % (37.9-51.0); LYMPHOCYTES % (AUTO) 10.8 % (13-45); MEAN CORPUSCULAR HEMOGLOBIN 31.3 pg (27.0-33.4); MEAN CORPUSCULAR HGB CONC 32.8 g/dL (32.0-36.0); MEAN CORPUSCULAR VOLUME 95 fl (80-97); MONOCYTES % (AUTO) 8.4 % (3-13); PLATELET COUNT 256 10^3/uL (150-450); RED BLOOD COUNT 2.88 10^6/uL (4.35-5.55); SEGMENTED NEUTROPHILS % (AUTO) 80.3 % (42-78); TOTAL CELLS COUNTED % (AUTO) 100 %; WHITE BLOOD COUNT 14.6 10^3/uL (4.0-10.5)
[2018-05-11 16:26] LABS: INTERNATIONAL RATION (INR) 1.09; PROTHROMBIN TIME 14.7 SEC (11.4-15.4)
[2018-05-11 16:27] LABS: PARTIAL THROMBOPLASTIN TIME 35.4 SEC (23.5-35.8)
[2018-05-11 16:46] LABS: ALANINE AMINOTRANSFERASE 11 U/L (21-72); ALBUMIN 4.1 g/dL (3.5-5.0); ALKALINE PHOSPHATASE 60 U/L (38-126); ANION GAP 14 (5-19); ASPARTATE AMINO TRANSFERASE 14 U/L (17-59); BILIRUBIN,DIRECT 0.3 mg/dL (0.0-0.4); BLOOD UREA NITROGEN 23 mg/dL (7-20); CALCIUM 8.7 mg/dL (8.4-10.2); CARBON DIOXIDE 25 mmol/L (22-30); CHLORIDE 99 mmol/L (98-107); CREATINE KINASE 71 U/L (55-170); GLUCOSE 114 mg/dL (75-110); POTASSIUM 4.3 mmol/L (3.6-5.0); SODIUM 137.5 mmol/L (137-145)
[2018-05-11] MEDS ORDERED: AZITHROMYCIN INJ 500 MG VIAL IV ONE (16:50)
[2018-05-11] MEDS ORDERED: CEFTRIAXONE 1 GM/D5W RTU 50 ML IV ONE (16:50)
[2018-05-11] MEDS ORDERED: ACETAMINOPHEN 325 MG TABLET PO PRN (17:10)
[2018-05-11] MEDS ORDERED: VANCOMYCIN HCL INJ 1000 MG VIAL IV ONE (17:16)
[2018-05-11] MEDS ORDERED: NITROGLYCERIN 0.4 MG/TAB 25 TAB/BOTTLE SL PRN (17:17)
--- NOTE | 2018-05-11 17:54 | PDOC H&P ---
History of Present Illness Admission Date/PCP: 05/11/18 17:08 IG PHOENIX MD Patient complains of: Rigors, fevers, shortness of breath, and cough. History of Present Illness: LOU ROJAS is a 82 year old male Past Medical History Cardiac Medical History: Reports: Hyperlipidema, Hypertension Pulmonary Medical History: Reports: Chronic Obstructive Pulmonary Disease (COPD) GI Medical History: Reports: Gastroesophageal Reflux Disease, Other - hemorrhagic AVM;s Hematology: Reports: Anemia Past Surgical History Past Surgical History: Reports: Cardiac Catheterization Social History Smoking Status: Former Smoker Frequency of Alcohol Use: Occasional Hx Recreational Drug Use: No Drugs: None Family History Family History: None Parental Family History Reviewed: Yes Children Family History Reviewed: Yes Sibling(s) Family History Reviewed.: Yes Medication/Allergy Home Medications: Atorvastatin Calcium [Lipitor 40 mg Tablet] 40 mg PO QHS 07/30/11 Ezetimibe [Zetia 10 mg Tablet] 10 mg PO QAM 07/30/11 Felodipine [Plendil] 5 mg PO DAILY 07/30/11 Lisinopril [Prinivil 20 mg Tablet] 20 mg PO DAILY 07/30/11 Nitroglycerin [Nitro-Dur 5 mg (0.2 mg/Hr) Transdermal Patch] 1 patch TD QAM 10/09 Vitamin E [Formula E] 400 unit PO DAILY 07/30/11 Albuterol Sulfate [Proair HFA Inhalation Aerosol 8.5 gm MDI] 2 puff IH Q4HP PRN 04/21/18 Cyanocobalamin (Vitamin B-12) [Vitamin B-12 1000 mcg Tablet] 1,000 mcg PO DAILY 04/21/18 Furosemide [Lasix 20 mg Tablet] 20 mg PO QAM 04/21/18 Ipratropium [place] 2 puff NASL DAILYP PRN 04/21/18 Montelukast Sodium [Singulair 10 mg Tablet] 10 mg PO QAM 04/21/18 Nitroglycerin [Nitrostat 0.4 mg (1/150 Gr) Tabs 25/Bottle] 1 tab SL Q5MP PRN Tiotropium Br/Olodaterol HCl [Stiolto Respimat Inhal Jay] 2 puff IH DAILY Pantoprazole Sodium [Protonix] 40 mg PO DULCE MARIAFSMeet #30 tablet. 04/22/18 Allergies/Adverse Reactions: amoxicillin [Amoxicillin] Allergy (Verified 04/21/18 21:50) levofloxacin [From Levaquin] Allergy (Verified 05/11/18 15:11) Review of Systems Constitutional: PRESENT: chills, fever(s), night sweats, weakness Eyes: ABSENT: visual disturbances Ears: ABSENT: hearing changes Nose, Mouth, and Throat: ABSENT: headache(s), sore throat, vertigo Cardiovascular: ABSENT: chest pain, dyspnea on exertion, edema, palpitations Respiratory: PRESENT: cough, dyspnea. ABSENT: sputum Gastrointestinal: PRESENT: heartburn, other - One episode of severe GERD Friday night with coughing and likely aspiration.. ABSENT: diarrhea, hematemesis, hematochezia, melena, nausea, vomiting Musculoskeletal: ABSENT: deformity, joint swelling, muscle weakness Integumentary: ABSENT: lesions, rash, wounds Neurological: ABSENT: dizziness, focal weakness, lack of coordination, numbness , paresthesias, syncope, weakness Psychiatric: ABSENT: anxiety, depression, hallucinations Endocrine: ABSENT: cold intolerance, polyphagia, polyuria Physical Exam Vital Signs: Temp Pulse Resp BP Pulse Ox 98.4 F 94 25 H 108/54 L 95 05/11/18 14:38 05/11/18 14:38 05/11/18 17:01 05/11/18 17:01 05/11/18 17:01 General appearance: PRESENT: no acute distress, cooperative, hard of hearing, well-developed, well-nourished, other - The patient is awake, alert, and oriented x 3. No acute distress. Head exam: PRESENT: atraumatic, normocephalic Eye exam: PRESENT: EOMI, PERRLA, other - No scleral injection.. ABSENT: scleral icterus Ear exam: PRESENT: normal external ear exam. ABSENT: bleeding, drainage Mouth exam: PRESENT: dry mucosa, neck supple, tongue midline Throat exam: ABSENT: post pharyngeal erythema, tonsillar erythema, tonsillar exudate, tonsillogmegaly Neck exam: PRESENT: carotid bruit. ABSENT: JVD, lymphadenopathy, meningismus, tenderness, thyromegaly Respiratory exam: PRESENT: rales - bases bilaterally., other - No increased work of breathing.. ABSENT: crackles, rhonchi, wheezes Cardiovascular exam: PRESENT: RRR. ABSENT: gallop, rubs, systolic murmur Pulses: PRESENT: other - Diminished distal pulses. GI/Abdominal exam: PRESENT: mass, normal bowel sounds, soft. ABSENT: hernia, organolmegaly, tenderness Rectal exam: PRESENT: deferred Extremities exam: ABSENT: clubbing, pedal edema, tenderness Musculoskeletal exam: PRESENT: normal inspection. ABSENT: deformity, dislocation Neurological exam: PRESENT: alert, awake, oriented to person, oriented to place , oriented to time, oriented to situation Psychiatric exam: PRESENT: appropriate affect, normal mood Skin exam: PRESENT: dry, intact, warm Results Laboratory Results: 05/11/18 05/11/18 05/11/18 15:45 15:45 15:45 WBC 14.6 H RBC 2.88 L Hgb 9.0 L Hct 27.5 L MCV 95 MCH 31.3 MCHC 32.8 RDW 19.0 H Plt Count 256 Seg Neutrophils % 80.3 H Lymphocytes % 10.8 L Absolute Neutrophils 11.7 H PT 14.7 INR 1.09 APTT 35.4 Sodium 137.5 Potassium 4.3 Chloride 99 Carbon Dioxide 25 Anion Gap 14 BUN 23 H Creatinine 1.41 H Glucose 114 H Lactic Acid Calcium 8.7 Total Bilirubin 2.0 H Direct Bilirubin 0.3 AST 14 L ALT 11 L Alkaline Phosphatase 60 Creatine Kinase 71 Troponin I Total Protein 7.0 Albumin 4.1 05/11/18 05/11/18 15:45 15:45 WBC RBC Hgb Hct MCV MCH MCHC RDW Plt Count Seg Neutrophils % Lymphocytes % Absolute Neutrophils PT INR APTT Sodium Potassium Chloride Carbon Dioxide Anion Gap BUN Creatinine Glucose Lactic Acid 2.4 H Calcium Total Bilirubin Direct Bilirubin AST ALT Alkaline Phosphatase Creatine Kinase Troponin I < 0.012 Total Protein Albumin Impressions: Chest X-Ray 05/11/18 15:38 IMPRESSION: 1 Multifocal patchy airspace and interstitial disease in the mid- lower lung zones, more so on the left, findings suggest infiltrates. Assessment & Plan - Diagnosis (1) Hyperbilirubinemia Is this a current diagnosis for this admission?: Yes Plan: Monitor. (2) Pneumonia Qualifiers: Pneumonia type: due to unspecified organism Laterality: bilateral Lung location: unspecified part of lung Qualified Code(s): J18.9 - Pneumonia, unspecified organism Is this a current diagnosis for this admission?: Yes Plan: cover for HCPA organisms as the patient was just discharged from the hospital. Zosyn will also cover for possible aspiration pneumonia. (3) Sepsis Qualifiers: Sepsis type: sepsis due to unspecified organism Qualified Code(s): A41.9 - Sepsis, unspecified organism Is this a current diagnosis for this admission?: Yes Plan: Follow lactic acid. Aggressive IV fluid resuscitation. (4) Coronary artery disease Is this a current diagnosis for this admission?: Yes Plan: continue home medications. (5) Hyperlipidemia Qualifiers: Hyperlipidemia type: unspecified Qualified Code(s): E78.5 - Hyperlipidemia , unspecified Is this a current diagnosis for this admission?: Yes Plan: Statin as at home. (6) Hypertension Qualifiers: Hypertension type: essential hypertension Qualified Code(s): I10 - Essential (primary) hypertension Is this a current diagnosis for this admission?: Yes Plan: Continue home medications. (7) COPD exacerbation Is this a current diagnosis for this admission?: Yes Plan: Nebs and steroids. (8) HCAP (healthcare-associated pneumonia) Is this a current diagnosis for this admission?: Yes Plan: IV vancomycin and zosyn. - Time Time Spent: Greater than 70 Minutes Medications reviewed and adjusted accordingly: Yes - Inpatient Certification Based on my medical assessment, after consideration of the patient's comorbidities, presenting symptoms, or acuity I expect that the services needed warrant INPATIENT care.: Yes I certify that my determination is in accordance with my understanding of Medicare's requirements for reasonable and necessary INPATIENT services [42 CFR 412.3e].: Yes Medical Necessity: Need Close Monitoring Due to Risk of Patient Decompensation, Need for Nebulizer Therapy and Monitoring of Response, Need for IV Antibiotics
[2018-05-11] MEDS ORDERED: CEFTRIAXONE INJ 1000 MG VIAL IV ONE (18:00)
[2018-05-11 18:11] LABS: VENOUS BLOOD BASE EXCESS 1.2 mmol/L; VENOUS BLOOD HCO3 27.1 mmol/L (20-32); VENOUS BLOOD PH 7.35 (7.30-7.42)
[2018-05-11] MEDS: PIPERACILLIN SODIUM/TAZOBACTAM 3.375 GM in NORMAL SALINE 100 ML IV SCH (18:35)
[2018-05-11 20:06] LABS: APPEARANCE,URINE CLEAR; BILIRUBIN,URINE NEGATIVE (NEGATIVE); COLOR,URINE STRAW; GLUCOSE, URINE NEGATIVE (NEGATIVE); KETONES,URINE NEGATIVE (NEGATIVE); LEUKOCYTE ESTERASE,URINE NEGATIVE (NEGATIVE); NITRITE,URINE NEGATIVE (NEGATIVE); PROTEIN,URINE NEGATIVE (NEGATIVE); URINE SPECIFIC GRAVITY 1.008; UROBILINOGEN,URINE NEGATIVE mg/dL (<2.0)
--- NOTE | 2018-05-11 20:38 | EKG REPORT ---
SEVERITY:- ABNORMAL ECG - SINUS RHYTHM LEFT ANTERIOR FASCICULAR BLOCK : Confirmed by: Henry Garner MD 11-May-2018 20:38:06
[2018-05-11] MEDS ORDERED: CEFTRIAXONE INJ 1000 MG VIAL ONE (21:07)
[2018-05-11] MEDS: VANCOMYCIN HCL 750 MG in DEXTROSE 5%-WATER 250 ML IV SCH (22:01)
[2018-05-11] MEDS: GUAIFENESIN 600 MG TABLET.SA PO SCH (22:01)
[2018-05-11] MEDS: ATORVASTATIN CALCIUM 40 MG TABLET PO SCH (22:01)
[2018-05-11] MEDS: HYDROCORTISONE SOD SUCCINATE INJ/PF 100 MG/2 ML SDV IV SCH (22:02)
[2018-05-12] MEDS: PIPERACILLIN SODIUM/TAZOBACTAM 3.375 GM in NORMAL SALINE 100 ML IV SCH ×4 (01:15→17:14)
[2018-05-12 02:39] LABS: ABSOLUTE LYMPHOCYTES (AUTO) 1.5 10^3/uL (0.5-4.7); ABSOLUTE MONOCYTES (AUTO) 0.6 10^3/uL (0.1-1.4); ABSOLUTE NEUT (AUTO) 9.8 10^3/uL (1.7-8.2); BASOPHILS % (AUTO) 0.3 % (0-2); EOSINOPHILS % (AUTO) 0.1 % (0-6); HEMATOCRIT 24.9 % (37.9-51.0); HEMOGLOBIN 8.3 g/dL (13.5-17.0); LYMPHOCYTES % (AUTO) 12.7 % (13-45); MEAN CORPUSCULAR HEMOGLOBIN 31.4 pg (27.0-33.4); MEAN CORPUSCULAR HGB CONC 33.3 g/dL (32.0-36.0); MEAN CORPUSCULAR VOLUME 94 fl (80-97); MONOCYTES % (AUTO) 4.8 % (3-13); PLATELET COUNT 212 10^3/uL (150-450); RED BLOOD COUNT 2.65 10^6/uL (4.35-5.55); RED CELL DISTRIBUTION WIDTH 18.9 % (11.5-14.0); SEGMENTED NEUTROPHILS % (AUTO) 82.1 % (42-78); TOTAL CELLS COUNTED % (AUTO) 100 %; WHITE BLOOD COUNT 11.9 10^3/uL (4.0-10.5)
[2018-05-12 03:01] LABS: ALANINE AMINOTRANSFERASE 15 U/L (21-72); ALBUMIN 3.5 g/dL (3.5-5.0); ALKALINE PHOSPHATASE 56 U/L (38-126); ANION GAP 13 (5-19); ASPARTATE AMINO TRANSFERASE 13 U/L (17-59); BILIRUBIN,DIRECT 0.3 mg/dL (0.0-0.4); BILIRUBIN,TOTAL 1.7 mg/dL (0.2-1.3); BLOOD UREA NITROGEN 22 mg/dL (7-20); CALCIUM 8.4 mg/dL (8.4-10.2); CARBON DIOXIDE 24 mmol/L (22-30); CHLORIDE 108 mmol/L (98-107); GLUCOSE 145 mg/dL (75-110); POTASSIUM 5.2 mmol/L (3.6-5.0); SODIUM 145.1 mmol/L (137-145); TOTAL PROTEIN 6.5 g/dL (6.3-8.2)
[2018-05-12] MEDS: HYDROCORTISONE SOD SUCCINATE INJ/PF 100 MG/2 ML SDV IV SCH ×3 (05:12→21:40)
[2018-05-12] MEDS: MONTELUKAST SODIUM 10 MG TABLET PO SCH (08:26)
[2018-05-12] MEDS: LANSOPRAZOLE 30 MG TAB.RAP.DR PO SCH (08:26)
[2018-05-12] MEDS: NITROGLYCERIN 5 MG (0.2 MG/HR) PATCH.TD24 TD SCH (08:26)
[2018-05-12] MEDS: EZETIMIBE 10 MG TABLET PO SCH (08:26)
[2018-05-12] MEDS: VANCOMYCIN HCL 750 MG in DEXTROSE 5%-WATER 250 ML IV SCH ×2 (09:54→21:40)
[2018-05-12] MEDS: GUAIFENESIN 600 MG TABLET.SA PO SCH ×2 (09:54→21:41)
[2018-05-12] MEDS: VITAMIN E (DL, ACETATE) 400 UNIT CAPSULE PO SCH (09:55)
[2018-05-12] MEDS: CYANOCOBALAMIN (VITAMIN B-12) 1,000 MCG TABLET PO SCH (09:55)
[2018-05-12] MEDS ORDERED: VITAMIN E 400 UNIT PO SCH (10:00)
[2018-05-12] MEDS ORDERED: (PENDING PHARMACY ID) (Tiotropium Br/Olodaterol Hcl [Stiolto Respimat Inhal Spray] 2 PUFF) IH SCH (10:00)
--- NOTE | 2018-05-12 18:00 | Progress Note ---
Provider Note Provider Note: ID Consult Note Asked to review patient's chart by Pharmacy. Mr. Peres is an 82 year old man with PMH including COPD who is admitted to [facility] after presenting to the ED on 05/11/18 with c/o generalized weakness, fatigue and reported fever at home to 102 F with shaking chills the day prior to presentation. Pt also admitted to having cough and SOB, although according to the ED provider note, this was not changed from the patient's baseline. The patient had a recent prior admission for GI bleeding and had a duodenal ulcer and bleeding gastric AVM found. Pt was initially hypotensive. He was found to have bibasilar rales on exam. As an inpatient he has been afebrile. His WBC count was 14.6k on presentation. His creatinine is 1.4. His lactic acid was elevated on presentation at 2.4. He has blood cultures that are in process. His CXR showed multifocal patchy airspace and interstitial infiltrates L>R in mid-lower lung zones. The patient is currently receiving IV vancomycin and Zosyn. Impression/Recommendations Pneumonia, healthcare associated - Pt has had previous hospitalization recently and has also COPD. However, he did not receive IV antibiotics in the last 90 days (unless he had been hospitalized elsewhere and received IV antibiotics at another hospital). Receiving IV antibiotics in the last 90 days is a recognized risk factor for pneumonia drug-resistant organisms. - If he has not received IV antibiotics elsewhere in the last 90 days and blood cultures do not grow MRSA (usually growth would be expected in the first 48h), then vancomycin should be able to be discontinued. - Prior IV antibiotic exposure and structural lung disease may predispose patients to having increased risk for colonization and infection with Pseudomonas. Again, as reviewed with Pharmacy, pt did not receive IV antibiotics in the past 90 days, but on the basis of the patient having COPD, it is not unreasonable to include antipseudomonal active therapy in empiric treatment of pneumonia. - Of course, if sputum can be submitted for gram stain and culture early on in the hospital course, prior to pt receiving much antibiotic exposure, this may help target therapy. - Other studies that might be helpful depending on lab availability / turn- around time: MRSA nasal screen has high negative predictive value against MRSA pneumonia being present. If MRSA nasal screen is positive, it does not have good predictive value (can have MRSA nasal colonization without MRSA lower respiratory tract involvement, but it is unlikely to have MRSA pneumonia without MRSA nasopharyngeal colonization). Urine Strep pneumo antigen has variable sensitivity (has been estimated to be around 50-80% or so) but good specificity, so it is helpful when positive but not when negative. If either test is a send-out, it is not likely to be back in time to make a difference in patient care. Bao Santos MD [facility] Infectious Diseases pager [phone]
--- NOTE | 2018-05-12 18:04 | PDOC PROGRESS REPORT ---
Subjective Progress Note for:: 05/12/18 Subjective:: This is 82 years old male patient presented to [facility] with chief complaint of fever with T-max of 102, shaking chills and shortness of breath. His chest x-ray showed bilateral consolidation which is markedly on the left lung. Patient was recently discharged from this hospital after he was treated for upper GI bleeding due to gastric AVM. This morning I seen patient sitting up by the bedside. He is awake alert and oriented. He is in mild distress. Reason For Visit: SEPSIS,PNEUMONIA,RESPIRATORY FAILURE Physical Exam Vital Signs: Temp Pulse Resp BP Pulse Ox 98.1 F 74 16 147/56 H 97 05/12/18 11:06 05/12/18 14:00 05/12/18 11:06 05/12/18 11:06 05/12/18 11:06 Intake & Output 05/11/18 05/12/18 05/13/18 06:59 06:59 06:59 Intake Total 950 100 Balance 950 100 Weight 77.3 kg General appearance: PRESENT: mild distress Head exam: PRESENT: atraumatic, normocephalic Eye exam: PRESENT: conjunctiva pink Mouth exam: PRESENT: moist Neck exam: ABSENT: carotid bruit, JVD, lymphadenopathy, thyromegaly Respiratory exam: PRESENT: crackles, decreased breath sounds, rhonchi Cardiovascular exam: PRESENT: RRR. ABSENT: diastolic murmur, rubs, systolic murmur Pulses: PRESENT: normal dorsalis pedis pul GI/Abdominal exam: PRESENT: normal bowel sounds, soft. ABSENT: distended, guarding, mass, organolmegaly, rebound, tenderness Extremities exam: PRESENT: full ROM. ABSENT: calf tenderness, clubbing, pedal edema Neurological exam: PRESENT: alert, awake, oriented to time, oriented to situation Psychiatric exam: PRESENT: normal mood Results Laboratory Results: 05/12/18 02:30 05/12/18 02:30 05/11/18 05/11/18 05/11/18 17:36 19:30 20:00 WBC RBC Hgb Hct MCV MCH MCHC RDW Plt Count Seg Neutrophils % Lymphocytes % Monocytes % Eosinophils % Basophils % Absolute Neutrophils Absolute Lymphocytes Absolute Monocytes Absolute Eosinophils Absolute Basophils VBG pH 7.35 VBG pCO2 50.0 VBG HCO3 27.1 VBG Base Excess 1.2 Sodium Potassium Chloride Carbon Dioxide Anion Gap BUN Creatinine Est GFR ( Amer) Est GFR (Non-Af Amer) Glucose Lactic Acid 1.0 Calcium Total Bilirubin AST ALT Alkaline Phosphatase Total Protein Albumin Urine Color STRAW Urine Appearance CLEAR Urine pH 5.0 Ur Specific [place] 1.008 Urine Protein NEGATIVE Urine Glucose (UA) NEGATIVE Urine Ketones NEGATIVE Urine Blood SMALL H Urine Nitrite NEGATIVE Ur Leukocyte Esterase NEGATIVE Urine WBC (Auto) 1 Urine RBC (Auto) 0 05/12/18 05/12/18 05/12/18 02:30 02:30 02:30 WBC 11.9 H RBC 2.65 L Hgb 8.3 L Hct 24.9 L MCV 94 MCH 31.4 MCHC 33.3 RDW 18.9 H Plt Count 212 Seg Neutrophils % 82.1 H Lymphocytes % 12.7 L Monocytes % 4.8 Eosinophils % 0.1 Basophils % 0.3 Absolute Neutrophils 9.8 H Absolute Lymphocytes 1.5 Absolute Monocytes 0.6 Absolute Eosinophils 0.0 Absolute Basophils 0.0 VBG pH VBG pCO2 VBG HCO3 VBG Base Excess Sodium 145.1 H Potassium 5.2 H Chloride 108 H Carbon Dioxide 24 Anion Gap 13 BUN 22 H Creatinine 1.37 H Est GFR ( Amer) > 60 Est GFR (Non-Af Amer) 50 L Glucose 145 H Lactic Acid 2.0 Calcium 8.4 Total Bilirubin 1.7 H AST 13 L ALT 15 L Alkaline Phosphatase 56 Total Protein 6.5 Albumin 3.5 Urine Color Urine Appearance Urine pH Ur Specific [place] Urine Protein Urine Glucose (UA) Urine Ketones Urine Blood Urine Nitrite Ur Leukocyte Esterase Urine WBC (Auto) Urine RBC (Auto) Impressions: Chest X-Ray 05/11/18 15:38 IMPRESSION: 1 Multifocal patchy airspace and interstitial disease in the mid- lower lung zones, more so on the left, findings suggest infiltrates. Assessment & Plan - Diagnosis (1) HCAP (healthcare-associated pneumonia) Is this a current diagnosis for this admission?: Yes Plan: Continue current antibiotics regimen (2) Sepsis Qualifiers: Sepsis type: sepsis due to unspecified organism Qualified Code(s): A41.9 - Sepsis, unspecified organism Is this a current diagnosis for this admission?: Yes Plan: Due to #1 (3) Mildly elevated liver chemistry Is this a current diagnosis for this admission?: Yes Plan: Most probably related to his sepsis. (4) COPD exacerbation Is this a current diagnosis for this admission?: Yes Plan: Continue bronchodilators. (5) Hypertension Qualifiers: Hypertension type: essential hypertension Qualified Code(s): I10 - Essential (primary) hypertension Is this a current diagnosis for this admission?: Yes Plan: Continue home medication (6) Coronary artery disease Qualifiers: Coronary Disease-Associated Artery/Lesion type: [place] artery Is this a current diagnosis for this admission?: Yes Plan: Continue home medications. (7) Hyperlipidemia Qualifiers: Hyperlipidemia type: unspecified Qualified Code(s): E78.5 - Hyperlipidemia , unspecified Is this a current diagnosis for this admission?: Yes Plan: Continue home medications.
[2018-05-12] MEDS: ATORVASTATIN CALCIUM 40 MG TABLET PO SCH (21:41)
[2018-05-12] MEDS ORDERED: LACTULOSE SYRUP 20 GM/30 ML UDCUP PO ONE ×2 (22:15→22:30)
[2018-05-13] MEDS: PIPERACILLIN SODIUM/TAZOBACTAM 3.375 GM in NORMAL SALINE 100 ML IV SCH ×5 (01:03→23:37)
[2018-05-13 05:42] LABS: ANION GAP 13 (5-19); BLOOD UREA NITROGEN 21 mg/dL (7-20); CALCIUM 8.7 mg/dL (8.4-10.2); CARBON DIOXIDE 25 mmol/L (22-30); CHLORIDE 106 mmol/L (98-107); GLUCOSE 116 mg/dL (75-110); POTASSIUM 4.4 mmol/L (3.6-5.0); SODIUM 143.9 mmol/L (137-145)
[2018-05-13] MEDS: HYDROCORTISONE SOD SUCCINATE INJ/PF 100 MG/2 ML SDV IV SCH ×3 (05:43→21:37)
[2018-05-13] MEDS: EZETIMIBE 10 MG TABLET PO SCH (09:59)
[2018-05-13] MEDS: MONTELUKAST SODIUM 10 MG TABLET PO SCH (09:59)
[2018-05-13] MEDS: NITROGLYCERIN 5 MG (0.2 MG/HR) PATCH.TD24 TD SCH (10:00)
[2018-05-13] MEDS: CYANOCOBALAMIN (VITAMIN B-12) 1,000 MCG TABLET PO SCH (10:00)
[2018-05-13] MEDS: VITAMIN E (DL, ACETATE) 400 UNIT CAPSULE PO SCH (10:00)
[2018-05-13] MEDS: GUAIFENESIN 600 MG TABLET.SA PO SCH ×2 (10:00→21:37)
[2018-05-13] MEDS: DOCUSATE SODIUM 100 MG CAPSULE PO SCH ×2 (10:00→17:25)
[2018-05-13] MEDS: LANSOPRAZOLE 30 MG TAB.RAP.DR PO SCH (10:00)
[2018-05-13 10:12] LABS: VANCOMYCIN,TROUGH 9.1 ug/mL (5.0-20.0)
[2018-05-13] MEDS: VANCOMYCIN HCL 750 MG in DEXTROSE 5%-WATER 250 ML IV SCH ×2 (14:16→21:37)
--- NOTE | 2018-05-13 15:18 | PDOC PROGRESS REPORT ---
Subjective Progress Note for:: 05/13/18 Subjective:: I seen patient sitting by the bedside. He is awake alert and oriented. He is not in pain or distress. He reports this is shortness of breath is improving. Reason For Visit: SEPSIS,PNEUMONIA,RESPIRATORY FAILURE Physical Exam Vital Signs: Temp Pulse Resp BP Pulse Ox 97.6 F 81 16 142/61 H 96 05/13/18 07:46 05/13/18 07:46 05/13/18 07:46 05/13/18 07:46 05/13/18 09:05 Intake & Output 05/12/18 05/13/18 05/14/18 06:59 06:59 06:59 Intake Total 950 1674 Balance 950 1674 Weight 77.3 kg 79.3 kg General appearance: PRESENT: no acute distress Head exam: PRESENT: atraumatic Mouth exam: PRESENT: moist Neck exam: ABSENT: carotid bruit, JVD, lymphadenopathy, thyromegaly Respiratory exam: PRESENT: clear to auscultation carmelita. ABSENT: rales, rhonchi, wheezes Cardiovascular exam: PRESENT: RRR. ABSENT: diastolic murmur, rubs, systolic murmur GI/Abdominal exam: PRESENT: normal bowel sounds, soft. ABSENT: distended, guarding, mass, organolmegaly, rebound, tenderness Neurological exam: PRESENT: alert, awake, oriented to time, oriented to situation Psychiatric exam: PRESENT: normal mood Results Laboratory Results: 05/12/18 02:30 05/13/18 09:39 05/13/18 05/13/18 04:36 09:39 Sodium 143.9 Potassium 4.4 Chloride 106 Carbon Dioxide 25 Anion Gap 13 BUN 21 H Creatinine 1.26 H 1.18 Est GFR ( Amer) > 60 > 60 Est GFR (Non-Af Amer) 55 L 59 L Glucose 116 H Calcium 8.7 05/11/18 19:30 Clean Catch Midstream Urine Culture - Final NO GROWTH 2 DAYS Impressions: Chest X-Ray 05/11/18 15:38 IMPRESSION: 1 Multifocal patchy airspace and interstitial disease in the mid- lower lung zones, more so on the left, findings suggest infiltrates. Assessment & Plan - Diagnosis (1) HCAP (healthcare-associated pneumonia) Is this a current diagnosis for this admission?: Yes Plan: Continue current antibiotics regimen (2) Sepsis Qualifiers: Sepsis type: sepsis due to unspecified organism Qualified Code(s): A41.9 - Sepsis, unspecified organism Is this a current diagnosis for this admission?: Yes Plan: Due to #1 (3) Mildly elevated liver chemistry Is this a current diagnosis for this admission?: Yes Plan: Most probably related to his sepsis. (4) COPD exacerbation Is this a current diagnosis for this admission?: Yes Plan: Continue bronchodilators. (5) Acute kidney injury Is this a current diagnosis for this admission?: Yes Plan: Improving. His creatinine is trending down (6) Hypertension Qualifiers: Hypertension type: essential hypertension Qualified Code(s): I10 - Essential (primary) hypertension Is this a current diagnosis for this admission?: Yes Plan: Continue home medication (7) Coronary artery disease Qualifiers: Coronary Disease-Associated Artery/Lesion type: [place] artery Is this a current diagnosis for this admission?: Yes Plan: Continue home medications. (8) Hyperlipidemia Qualifiers: Hyperlipidemia type: unspecified Qualified Code(s): E78.5 - Hyperlipidemia , unspecified Is this a current diagnosis for this admission?: Yes Plan: Continue home medications.
--- NOTE | 2018-05-13 16:01 | RADIOLOGY REPORT (SQ) ---
EXAM DESCRIPTION: CHEST SINGLE VIEW COMPLETED DATE/TIME: 05/13/2018 3:52 pm REASON FOR STUDY: Bilateral pneumonia COMPARISON: 05/11/2018 EXAM PARAMETERS: NUMBER OF VIEWS: One view. TECHNIQUE: Single frontal radiographic view of the chest acquired. RADIATION DOSE: NA LIMITATIONS: None. FINDINGS: LUNGS AND PLEURA: Interval improvement previous noted pneumonia with mild residual pneumon ia noted in the left mid to lower lung. Remainder lungs are clear. No effusions. COPD. MEDIASTINUM AND HILAR STRUCTURES: No masses. Contour normal. HEART AND VASCULAR STRUCTURES: Heart normal in size. Normal vasculature. BONES: No acute findings. HARDWARE: None in the chest. OTHER: No other significant finding. IMPRESSION: Improving pneumonia with residual seen on the left. TECHNICAL DOCUMENTATION: JOB ID: [id number] [employer]- All Rights Reserved Reading location - IP/workstation name: [email or web address]
[2018-05-13] MEDS: ATORVASTATIN CALCIUM 40 MG TABLET PO SCH (21:37)
[2018-05-14 05:33] LABS: ABSOLUTE LYMPHOCYTES (AUTO) 1.4 10^3/uL (0.5-4.7); ABSOLUTE MONOCYTES (AUTO) 0.4 10^3/uL (0.1-1.4); ABSOLUTE NEUT (AUTO) 4.3 10^3/uL (1.7-8.2); BASOPHILS % (AUTO) 0.6 % (0-2); EOSINOPHILS % (AUTO) 0.1 % (0-6); HEMATOCRIT 23.8 % (37.9-51.0); HEMOGLOBIN 8.1 g/dL (13.5-17.0); LYMPHOCYTES % (AUTO) 23.1 % (13-45); MEAN CORPUSCULAR HEMOGLOBIN 31.9 pg (27.0-33.4); MEAN CORPUSCULAR VOLUME 94 fl (80-97); MONOCYTES % (AUTO) 6.6 % (3-13); PLATELET COUNT 232 10^3/uL (150-450); RED BLOOD COUNT 2.54 10^6/uL (4.35-5.55); RED CELL DISTRIBUTION WIDTH 18.4 % (11.5-14.0); SEGMENTED NEUTROPHILS % (AUTO) 69.6 % (42-78); TOTAL CELLS COUNTED % (AUTO) 100 %; WHITE BLOOD COUNT 6.2 10^3/uL (4.0-10.5)
[2018-05-14] MEDS: HYDROCORTISONE SOD SUCCINATE INJ/PF 100 MG/2 ML SDV IV SCH ×3 (05:36→21:32)
[2018-05-14] MEDS: PIPERACILLIN SODIUM/TAZOBACTAM 3.375 GM in NORMAL SALINE 100 ML IV SCH ×4 (05:36→23:12)
[2018-05-14 05:45] LABS: ANION GAP 12 (5-19); BLOOD UREA NITROGEN 19 mg/dL (7-20); CALCIUM 8.6 mg/dL (8.4-10.2); CARBON DIOXIDE 26 mmol/L (22-30); CHLORIDE 107 mmol/L (98-107); GLUCOSE 111 mg/dL (75-110); POTASSIUM 4.1 mmol/L (3.6-5.0); SODIUM 144.7 mmol/L (137-145)
[2018-05-14] MEDS: MONTELUKAST SODIUM 10 MG TABLET PO SCH (08:20)
[2018-05-14] MEDS: NITROGLYCERIN 5 MG (0.2 MG/HR) PATCH.TD24 TD SCH (08:20)
[2018-05-14] MEDS: LANSOPRAZOLE 30 MG TAB.RAP.DR PO SCH (08:20)
[2018-05-14] MEDS: VANCOMYCIN HCL 750 MG in DEXTROSE 5%-WATER 250 ML IV SCH (08:20)
[2018-05-14] MEDS: EZETIMIBE 10 MG TABLET PO SCH (08:20)
[2018-05-14] MEDS: GUAIFENESIN 600 MG TABLET.SA PO SCH ×2 (10:45→21:33)
[2018-05-14] MEDS: VITAMIN E (DL, ACETATE) 400 UNIT CAPSULE PO SCH (10:45)
[2018-05-14] MEDS: CYANOCOBALAMIN (VITAMIN B-12) 1,000 MCG TABLET PO SCH (10:46)
[2018-05-14] MEDS: DOCUSATE SODIUM 100 MG CAPSULE PO SCH ×2 (10:47→19:37)
[2018-05-14] MEDS ORDERED: NORMAL SALINE 250 ML IV PRN ×2 (11:35)
--- NOTE | 2018-05-14 14:24 | PDOC PROGRESS REPORT ---
Subjective Progress Note for:: 05/14/18 Subjective:: I seen patient sitting on chair and chatting with his . Patient reports feeling better. His chest x-ray also showed some improvement compared to the one done on 11 May. His hemoglobin dropped from 9-8.1. I will transfuse him with 1 unit of PRBC since patient has history of GI bleeding. Physical therapy and incentive spirometry also ordered. Reason For Visit: SEPSIS,PNEUMONIA,RESPIRATORY FAILURE Physical Exam Vital Signs: Temp Pulse Resp BP Pulse Ox 97.9 F 85 16 138/65 H 97 05/14/18 10:54 05/14/18 10:54 05/14/18 10:54 05/14/18 10:54 05/14/18 10:54 Intake & Output 05/13/18 05/14/18 05/15/18 06:59 06:59 06:59 Intake Total 1674 6 600 Balance 1674 6 600 Weight 79.3 kg 79.2 kg General appearance: PRESENT: no acute distress Head exam: PRESENT: atraumatic Mouth exam: PRESENT: moist Neck exam: ABSENT: carotid bruit, JVD, lymphadenopathy, thyromegaly Respiratory exam: PRESENT: crackles, rhonchi Cardiovascular exam: PRESENT: RRR. ABSENT: diastolic murmur, rubs, systolic murmur GI/Abdominal exam: PRESENT: normal bowel sounds, soft. ABSENT: distended, guarding, mass, organolmegaly, rebound, tenderness Neurological exam: PRESENT: alert, awake, oriented to time, oriented to situation Psychiatric exam: PRESENT: normal mood Results Laboratory Results: 05/14/18 05:15 05/14/18 05:15 05/14/18 05/14/18 05/14/18 05:15 05:15 12:37 WBC 6.2 RBC 2.54 L Hgb 8.1 L Hct 23.8 L MCV 94 MCH 31.9 MCHC 34.0 RDW 18.4 H Plt Count 232 Seg Neutrophils % 69.6 Lymphocytes % 23.1 Monocytes % 6.6 Eosinophils % 0.1 Basophils % 0.6 Absolute Neutrophils 4.3 Absolute Lymphocytes 1.4 Absolute Monocytes 0.4 Absolute Eosinophils 0.0 Absolute Basophils 0.0 Sodium 144.7 Potassium 4.1 Chloride 107 Carbon Dioxide 26 Anion Gap 12 BUN 19 Creatinine 1.10 Est GFR ( Amer) > 60 Est GFR (Non-Af Amer) > 60 Glucose 111 H Calcium 8.6 Blood Type A POSITIVE Antibody Screen NEGATIVE Impressions: Chest X-Ray 05/13/18 00:00 IMPRESSION: Improving pneumonia with residual seen on the left. Assessment & Plan - Diagnosis (1) Possible A on chronic blood loss anemia Is this a current diagnosis for this admission?: Yes Plan: Stool for occult blood. Transfuse 1 unit of PRBC (2) HCAP (healthcare-associated pneumonia) Is this a current diagnosis for this admission?: Yes Plan: Continue current antibiotics regimen (3) Sepsis Qualifiers: Sepsis type: sepsis due to unspecified organism Qualified Code(s): A41.9 - Sepsis, unspecified organism Is this a current diagnosis for this admission?: Yes Plan: Due to #1 (4) Mildly elevated liver chemistry Is this a current diagnosis for this admission?: Yes Plan: Most probably related to his sepsis. (5) COPD exacerbation Is this a current diagnosis for this admission?: Yes Plan: Continue bronchodilators. (6) Acute kidney injury Is this a current diagnosis for this admission?: Yes Plan: Improving (7) Hypertension Qualifiers: Hypertension type: essential hypertension Qualified Code(s): I10 - Essential (primary) hypertension Is this a current diagnosis for this admission?: Yes Plan: Continue home medication (8) Coronary artery disease Qualifiers: Coronary Disease-Associated Artery/Lesion type: [place] artery Is this a current diagnosis for this admission?: Yes Plan: Continue home medications. (9) Hyperlipidemia Qualifiers: Hyperlipidemia type: unspecified Qualified Code(s): E78.5 - Hyperlipidemia , unspecified Is this a current diagnosis for this admission?: Yes Plan: Continue home medications.
[2018-05-14] MEDS ORDERED: FUROSEMIDE INJ/PF 20 MG/2 ML SDV IV PRN (18:20)
[2018-05-14] MEDS: VANCOMYCIN HCL 1,000 MG in DEXTROSE 5%-WATER 250 ML IV SCH (21:32)
[2018-05-14] MEDS: ATORVASTATIN CALCIUM 40 MG TABLET PO SCH (21:33)
[2018-05-14 22:03] LABS: ABSOLUTE BASOPHILS # (AUTO) 0.1 10^3/uL (0.0-0.2); ABSOLUTE EOSINOPHILS # (AUTO) 0.1 10^3/uL (0.0-0.6); ABSOLUTE LYMPHOCYTES (AUTO) 2.3 10^3/uL (0.5-4.7); ABSOLUTE MONOCYTES (AUTO) 0.9 10^3/uL (0.1-1.4); ABSOLUTE NEUT (AUTO) 5.4 10^3/uL (1.7-8.2); BASOPHILS % (AUTO) 0.9 % (0-2); EOSINOPHILS % (AUTO) 0.9 % (0-6); HEMATOCRIT 29.5 % (37.9-51.0); LYMPHOCYTES % (AUTO) 26.3 % (13-45); MEAN CORPUSCULAR HEMOGLOBIN 31.3 pg (27.0-33.4); MEAN CORPUSCULAR HGB CONC 33.8 g/dL (32.0-36.0); MEAN CORPUSCULAR VOLUME 93 fl (80-97); MONOCYTES % (AUTO) 10.6 % (3-13); PLATELET COUNT 277 10^3/uL (150-450); RED BLOOD COUNT 3.18 10^6/uL (4.35-5.55); RED CELL DISTRIBUTION WIDTH 17.7 % (11.5-14.0); SEGMENTED NEUTROPHILS % (AUTO) 61.3 % (42-78); TOTAL CELLS COUNTED % (AUTO) 100 %; WHITE BLOOD COUNT 8.8 10^3/uL (4.0-10.5)
[2018-05-15] MEDS: PIPERACILLIN SODIUM/TAZOBACTAM 3.375 GM in NORMAL SALINE 100 ML IV SCH ×4 (05:25→23:06)
[2018-05-15] MEDS: HYDROCORTISONE SOD SUCCINATE INJ/PF 100 MG/2 ML SDV IV SCH ×3 (05:25→21:11)
[2018-05-15] MEDS: VANCOMYCIN HCL 1,000 MG in DEXTROSE 5%-WATER 250 ML IV SCH ×2 (05:25→17:18)
[2018-05-15] MEDS: NITROGLYCERIN 5 MG (0.2 MG/HR) PATCH.TD24 TD SCH (08:49)
[2018-05-15] MEDS: LANSOPRAZOLE 30 MG TAB.RAP.DR PO SCH (08:51)
[2018-05-15] MEDS: EZETIMIBE 10 MG TABLET PO SCH (08:51)
[2018-05-15] MEDS: MONTELUKAST SODIUM 10 MG TABLET PO SCH (08:51)
--- NOTE | 2018-05-15 09:32 | PDOC PROGRESS REPORT ---
Subjective Progress Note for:: 05/15/18 Subjective:: Patient seen while sitting on chair and enjoying his breakfast. No significant event overnight. Patient transfused with 1 unit of PRBC yesterday and his hemoglobin increased from 8.1-10. His chest x-ray reported as improving pneumonia with residual seen on the left. Reason For Visit: SEPSIS,PNEUMONIA,RESPIRATORY FAILURE Physical Exam Vital Signs: Temp Pulse Resp BP Pulse Ox 98.0 F 72 16 128/52 H 100 05/15/18 03:45 05/15/18 07:00 05/15/18 03:45 05/15/18 03:45 05/15/18 03:45 Intake & Output 05/14/18 05/15/18 05/16/18 06:59 06:59 06:59 Intake Total 2055 2890 Balance 2055 2890 Weight 79.2 kg 80.8 kg General appearance: PRESENT: no acute distress Head exam: PRESENT: atraumatic Neck exam: ABSENT: carotid bruit, JVD, lymphadenopathy, thyromegaly Respiratory exam: PRESENT: crackles Cardiovascular exam: PRESENT: RRR. ABSENT: diastolic murmur, rubs, systolic murmur GI/Abdominal exam: PRESENT: normal bowel sounds, soft. ABSENT: distended, guarding, mass, organolmegaly, rebound, tenderness Neurological exam: PRESENT: alert, awake, oriented to time, oriented to situation Results Laboratory Results: 05/14/18 21:50 05/14/18 05:15 05/14/18 05/14/18 12:37 21:50 WBC 8.8 RBC 3.18 L Hgb 10.0 L Hct 29.5 L MCV 93 MCH 31.3 MCHC 33.8 RDW 17.7 H Plt Count 277 Seg Neutrophils % 61.3 Lymphocytes % 26.3 Monocytes % 10.6 Eosinophils % 0.9 Basophils % 0.9 Absolute Neutrophils 5.4 Absolute Lymphocytes 2.3 Absolute Monocytes 0.9 Absolute Eosinophils 0.1 Absolute Basophils 0.1 Blood Type A POSITIVE Antibody Screen NEGATIVE Impressions: Chest X-Ray 05/13/18 00:00 IMPRESSION: Improving pneumonia with residual seen on the left. Assessment & Plan - Diagnosis (1) Possible A on chronic blood loss anemia Is this a current diagnosis for this admission?: Yes Plan: Status post PRBC transfusion. Hemoglobin increased from 8.12-10 (2) HCAP (healthcare-associated pneumonia) Is this a current diagnosis for this admission?: Yes Plan: Continue current antibiotics regimen (3) Sepsis Qualifiers: Sepsis type: sepsis due to unspecified organism Qualified Code(s): A41.9 - Sepsis, unspecified organism Is this a current diagnosis for this admission?: Yes Plan: Due to #1 (4) Mildly elevated liver chemistry Is this a current diagnosis for this admission?: Yes Plan: Most probably related to his sepsis. (5) COPD exacerbation Is this a current diagnosis for this admission?: Yes Plan: Continue bronchodilators. (6) Acute kidney injury Is this a current diagnosis for this admission?: Yes Plan: Improving (7) Hypertension Qualifiers: Hypertension type: essential hypertension Qualified Code(s): I10 - Essential (primary) hypertension Is this a current diagnosis for this admission?: Yes Plan: Continue home medication (8) Coronary artery disease Qualifiers: Coronary Disease-Associated Artery/Lesion type: [place] artery Is this a current diagnosis for this admission?: Yes Plan: Continue home medications. (9) Hyperlipidemia Qualifiers: Hyperlipidemia type: unspecified Qualified Code(s): E78.5 - Hyperlipidemia , unspecified Is this a current diagnosis for this admission?: Yes Plan: Continue home medications.
[2018-05-15] MEDS: VITAMIN E (DL, ACETATE) 400 UNIT CAPSULE PO SCH (10:56)
[2018-05-15] MEDS: CYANOCOBALAMIN (VITAMIN B-12) 1,000 MCG TABLET PO SCH (10:56)
[2018-05-15] MEDS: DOCUSATE SODIUM 100 MG CAPSULE PO SCH ×2 (10:56→17:05)
[2018-05-15] MEDS: GUAIFENESIN 600 MG TABLET.SA PO SCH ×2 (10:56→21:11)
[2018-05-15] MEDS: ATORVASTATIN CALCIUM 40 MG TABLET PO SCH (21:11)
[2018-05-16] MEDS: HYDROCORTISONE SOD SUCCINATE INJ/PF 100 MG/2 ML SDV IV SCH ×3 (05:18→21:07)
[2018-05-16] MEDS: PIPERACILLIN SODIUM/TAZOBACTAM 3.375 GM in NORMAL SALINE 100 ML IV SCH ×4 (05:18→23:04)
[2018-05-16] MEDS: VANCOMYCIN HCL 1,000 MG in DEXTROSE 5%-WATER 250 ML IV SCH ×2 (05:58→21:03)
[2018-05-16 06:35] LABS: VANCOMYCIN,TROUGH 16.9 ug/mL (5.0-20.0)
[2018-05-16] MEDS: LANSOPRAZOLE 30 MG TAB.RAP.DR PO SCH (08:04)
[2018-05-16] MEDS: EZETIMIBE 10 MG TABLET PO SCH (08:04)
[2018-05-16] MEDS: MONTELUKAST SODIUM 10 MG TABLET PO SCH (08:04)
[2018-05-16] MEDS: NITROGLYCERIN 5 MG (0.2 MG/HR) PATCH.TD24 TD SCH (08:07)
[2018-05-16] MEDS: GUAIFENESIN 600 MG TABLET.SA PO SCH ×2 (11:26→21:09)
[2018-05-16] MEDS: CYANOCOBALAMIN (VITAMIN B-12) 1,000 MCG TABLET PO SCH (11:26)
[2018-05-16] MEDS: DOCUSATE SODIUM 100 MG CAPSULE PO SCH ×2 (11:28→17:32)
[2018-05-16] MEDS: VITAMIN E (DL, ACETATE) 400 UNIT CAPSULE PO SCH (11:28)
--- NOTE | 2018-05-16 13:28 | PDOC PROGRESS REPORT ---
Subjective Progress Note for:: 05/16/18 Subjective:: No new complaint. Significant change overnight. Reason For Visit: SEPSIS,PNEUMONIA,RESPIRATORY FAILURE Physical Exam Vital Signs: Temp Pulse Resp BP Pulse Ox 98.0 F 86 16 150/67 H 96 05/16/18 11:20 05/16/18 11:20 05/16/18 11:20 05/16/18 11:20 05/16/18 11:20 Intake & Output 05/15/18 05/16/18 05/17/18 06:59 06:59 06:59 Intake Total 2890 3237 587 Balance 2890 3237 587 Weight 80.8 kg 80.6 kg General appearance: PRESENT: no acute distress Head exam: PRESENT: atraumatic Mouth exam: PRESENT: moist Neck exam: ABSENT: carotid bruit, JVD, lymphadenopathy, thyromegaly Respiratory exam: PRESENT: crackles Cardiovascular exam: PRESENT: RRR. ABSENT: diastolic murmur, rubs, systolic murmur GI/Abdominal exam: PRESENT: normal bowel sounds, soft. ABSENT: distended, guarding, mass, organolmegaly, rebound, tenderness Neurological exam: PRESENT: alert, awake, oriented to time, oriented to situation Results Laboratory Results: 05/14/18 21:50 05/14/18 05:15 Impressions: Chest X-Ray 05/13/18 00:00 IMPRESSION: Improving pneumonia with residual seen on the left. Assessment & Plan - Diagnosis (1) Possible A on chronic blood loss anemia Is this a current diagnosis for this admission?: Yes Plan: Status post PRBC transfusion. Hemoglobin increased from 8.12-10 (2) HCAP (healthcare-associated pneumonia) Is this a current diagnosis for this admission?: Yes Plan: Continue current antibiotics regimen (3) Sepsis Qualifiers: Sepsis type: sepsis due to unspecified organism Qualified Code(s): A41.9 - Sepsis, unspecified organism Is this a current diagnosis for this admission?: Yes Plan: Due to #1 (4) Mildly elevated liver chemistry Is this a current diagnosis for this admission?: Yes Plan: Most probably related to his sepsis. (5) COPD exacerbation Is this a current diagnosis for this admission?: Yes Plan: Continue bronchodilators. (6) Acute kidney injury Is this a current diagnosis for this admission?: Yes Plan: Improving (7) Hypertension Qualifiers: Hypertension type: essential hypertension Qualified Code(s): I10 - Essential (primary) hypertension Is this a current diagnosis for this admission?: Yes Plan: Continue home medication (8) Coronary artery disease Qualifiers: Coronary Disease-Associated Artery/Lesion type: [place] artery Is this a current diagnosis for this admission?: Yes Plan: Continue home medications. (9) Hyperlipidemia Qualifiers: Hyperlipidemia type: unspecified Qualified Code(s): E78.5 - Hyperlipidemia , unspecified Is this a current diagnosis for this admission?: Yes Plan: Continue home medications.
[2018-05-16] MEDS: ATORVASTATIN CALCIUM 40 MG TABLET PO SCH (21:09)
[2018-05-17] MEDS: PIPERACILLIN SODIUM/TAZOBACTAM 3.375 GM in NORMAL SALINE 100 ML IV SCH ×4 (05:06→23:01)
[2018-05-17] MEDS: HYDROCORTISONE SOD SUCCINATE INJ/PF 100 MG/2 ML SDV IV SCH ×3 (05:06→21:46)
[2018-05-17] MEDS: VANCOMYCIN HCL 1,000 MG in DEXTROSE 5%-WATER 250 ML IV SCH ×2 (05:39→18:36)
[2018-05-17] MEDS: EZETIMIBE 10 MG TABLET PO SCH (08:57)
[2018-05-17] MEDS: LANSOPRAZOLE 30 MG TAB.RAP.DR PO SCH (08:57)
[2018-05-17] MEDS: MONTELUKAST SODIUM 10 MG TABLET PO SCH (08:57)
[2018-05-17] MEDS: NITROGLYCERIN 5 MG (0.2 MG/HR) PATCH.TD24 TD SCH (08:57)
[2018-05-17] MEDS: GUAIFENESIN 600 MG TABLET.SA PO SCH ×2 (09:00→21:46)
[2018-05-17] MEDS: CYANOCOBALAMIN (VITAMIN B-12) 1,000 MCG TABLET PO SCH (09:00)
[2018-05-17] MEDS: VITAMIN E (DL, ACETATE) 400 UNIT CAPSULE PO SCH (09:00)
[2018-05-17] MEDS: DOCUSATE SODIUM 100 MG CAPSULE PO SCH ×2 (09:00→17:32)
--- NOTE | 2018-05-17 11:20 | RADIOLOGY REPORT (SQ) ---
EXAM DESCRIPTION: CHEST SINGLE VIEW COMPLETED DATE/TIME: 05/17/2018 11:03 am REASON FOR STUDY: Pneumonia COMPARISON: Multiples, most recent 05/13/2018 EXAM PARAMETERS: NUMBER OF VIEWS: One view. TECHNIQUE: Single frontal radiographic view of the chest acquired. RADIATION DOSE: NA LIMITATIONS: None. FINDINGS: LUNGS AND PLEURA: Minimally improved appearance of the left lateral lower lung field opaci ty. Persistent blunting of the left costophrenic angle. No new airspace opacities. Right costophre maribell angle is sharp. No pneumothorax. MEDIASTINUM AND HILAR STRUCTURES: No masses. Contour normal. HEART AND VASCULAR STRUCTURES: Heart normal in size. Normal vasculature. BONES: No acute findings. HARDWARE: None in the chest. OTHER: No other significant finding. IMPRESSION: Minimal interval improvement of the left lung opacity. TECHNICAL DOCUMENTATION: JOB ID: [id number] [employer]- All Rights Reserved Reading location - IP/workstation name: [email or web address]
--- NOTE | 2018-05-17 14:05 | PDOC PROGRESS REPORT ---
Subjective Subjective:: Patient has been doing well and has marked clinical improvement. This morning I repeated his chest x-ray and is reported as minimal interval change. I reviewed myself and the chest x-ray still has left lower lobe consolidation. Reason For Visit: SEPSIS,PNEUMONIA,RESPIRATORY FAILURE Physical Exam Vital Signs: Temp Pulse Resp BP Pulse Ox 97.7 F 82 22 H 166/70 H 96 05/17/18 11:50 05/17/18 11:50 05/17/18 11:50 05/17/18 11:50 05/17/18 11:50 Intake & Output 05/16/18 05/17/18 05/18/18 06:59 06:59 06:59 Intake Total 3237 1437 824 Balance 3237 1437 824 Weight 80.6 kg 83.8 kg General appearance: PRESENT: no acute distress Head exam: PRESENT: atraumatic Eye exam: PRESENT: conjunctiva pink Mouth exam: PRESENT: moist Neck exam: ABSENT: carotid bruit, JVD, lymphadenopathy, thyromegaly Respiratory exam: PRESENT: crackles Cardiovascular exam: PRESENT: RRR. ABSENT: diastolic murmur, rubs, systolic murmur GI/Abdominal exam: PRESENT: normal bowel sounds, soft. ABSENT: distended, guarding, mass, organolmegaly, rebound, tenderness Neurological exam: PRESENT: alert, awake, oriented to time, oriented to situation Results Laboratory Results: 05/14/18 21:50 05/14/18 05:15 05/11/18 17:36 Blood Blood Culture - Final NO GROWTH IN 5 DAYS Impressions: Chest X-Ray 05/17/18 00:00 IMPRESSION: Minimal interval improvement of the left lung opacity. Assessment & Plan - Diagnosis (1) Possible A on chronic blood loss anemia Is this a current diagnosis for this admission?: Yes Plan: Status post PRBC transfusion. Hemoglobin increased from 8.12-10 (2) HCAP (healthcare-associated pneumonia) Is this a current diagnosis for this admission?: Yes Plan: Continue current antibiotics regimen (3) Sepsis Qualifiers: Sepsis type: sepsis due to unspecified organism Qualified Code(s): A41.9 - Sepsis, unspecified organism Is this a current diagnosis for this admission?: Yes Plan: Due to #1 (4) Mildly elevated liver chemistry Is this a current diagnosis for this admission?: Yes Plan: Most probably related to his sepsis. (5) COPD exacerbation Is this a current diagnosis for this admission?: Yes Plan: Continue bronchodilators. (6) Acute kidney injury Is this a current diagnosis for this admission?: Yes Plan: Improving (7) Hypertension Qualifiers: Hypertension type: essential hypertension Qualified Code(s): I10 - Essential (primary) hypertension Is this a current diagnosis for this admission?: Yes Plan: Continue home medication (8) Coronary artery disease Qualifiers: Coronary Disease-Associated Artery/Lesion type: [place] artery Is this a current diagnosis for this admission?: Yes Plan: Continue home medications. (9) Hyperlipidemia Qualifiers: Hyperlipidemia type: unspecified Qualified Code(s): E78.5 - Hyperlipidemia , unspecified Is this a current diagnosis for this admission?: Yes Plan: Continue home medications.
[2018-05-17] MEDS ORDERED: LISINOPRIL 10 MG TABLET PO ONE (16:00)
[2018-05-17] MEDS: ATORVASTATIN CALCIUM 40 MG TABLET PO SCH (21:46)
[2018-05-18] MEDS: VANCOMYCIN HCL 1,000 MG in DEXTROSE 5%-WATER 250 ML IV SCH (05:08)
[2018-05-18] MEDS: PIPERACILLIN SODIUM/TAZOBACTAM 3.375 GM in NORMAL SALINE 100 ML IV SCH (05:08)
[2018-05-18] MEDS: HYDROCORTISONE SOD SUCCINATE INJ/PF 100 MG/2 ML SDV IV SCH (05:08)
[2018-05-18] MEDS: NITROGLYCERIN 5 MG (0.2 MG/HR) PATCH.TD24 TD SCH (08:57)
[2018-05-18] MEDS: EZETIMIBE 10 MG TABLET PO SCH (08:58)
[2018-05-18] MEDS: MONTELUKAST SODIUM 10 MG TABLET PO SCH (08:58)
[2018-05-18] MEDS: LANSOPRAZOLE 30 MG TAB.RAP.DR PO SCH (08:58)
[2018-05-18] MEDS: GUAIFENESIN 600 MG TABLET.SA PO SCH (09:00)
[2018-05-18] MEDS: DOCUSATE SODIUM 100 MG CAPSULE PO SCH (09:00)
[2018-05-18] MEDS: CYANOCOBALAMIN (VITAMIN B-12) 1,000 MCG TABLET PO SCH (09:00)
[2018-05-18] MEDS: VITAMIN E (DL, ACETATE) 400 UNIT CAPSULE PO SCH (09:01)
[2018-05-18] MEDS ORDERED: LISINOPRIL 10 MG TABLET PO SCH (10:00)
[2018-05-18 12:18] VITALS: BP 143/55
--- NOTE | 2018-08-04 12:35 | PDOC DISCHARGE SUMMARY ---
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: Yes (9) Hyperlipidemia Is this a current diagnosis for this admission?: Yes - Additional Information Home Medications: Atorvastatin Calcium [Lipitor 40 mg Tablet] 40 mg PO QHS 07/30/11 Ezetimibe [Zetia 10 mg Tablet] 10 mg PO QAM 07/30/11 Lisinopril [Prinivil 20 mg Tablet] 20 mg PO DAILY 07/30/11 Nitroglycerin [Nitro-Dur 5 mg (0.2 mg/Hr) Transdermal Patch] 1 patch TD QAM 10/09 Albuterol Sulfate [Proair HFA Inhalation Aerosol 8.5 gm MDI] 2 puff IH Q4HP PRN 04/21/18 Cyanocobalamin (Vitamin B-12) [Vitamin B-12 1000 mcg Tablet] 1,000 mcg PO DAILY 04/21/18 Furosemide [Lasix 20 mg Tablet] 20 mg PO QAMP PRN 04/21/18 Ipratropium [place] 2 puff NASL DAILYP PRN 04/21/18 Montelukast Sodium [Singulair 10 mg Tablet] 10 mg PO QAM 04/21/18 Nitroglycerin [Nitrostat 0.4 mg (1/150 Gr) Tabs 25/Bottle] 1 tab SL Q5MP PRN Tiotropium Br/Olodaterol HCl [Stiolto Respimat Inhal [place]] 2 puff IH DAILY Pantoprazole Sodium [Protonix] 40 mg PO DULCE MARIAFSMeet #30 tablet. 04/22/18 Metoprolol Succinate [Toprol Xl 25 mg Tab.sr] 25 mg PO DAILY 07/20/18 History of Present Illness History of Present Illness: LOU ROJAS is a 82 year old male 82-year-old male was admitted last month for GI bleed. Was initially evaluated for shortness of breath and found to have a hemoglobin of 7.6. He was transfused 2 units and hemoglobin increased to 9.1. EGD by Dr. Rmaires showed esophageal and duodenal ulcer, nodular gastritis, and a bleeding gastric AVM that was treated with an argon plasma outside upholsterer. He was changed from Protonix to Dexilant which he started 2 days ago. Yesterday, he developed shaking chills and had a fever of 102. He has had generalized weakness and lightheadedness. He was found to have low blood pressure today 89/ 45. He called test engineering intern and was advised to come to the emergency department for further evaluation. He denies any continued bleeding in stools or melena. No nausea, abdominal pain, vomiting. Denies chest pain. He has chronic shortness of breath and cough from COPD that is unchanged. He has not had a fever today. Hospital Course Hospital Course: This is 82 years old male patient presented to [facility] with chief complaint of fever with T-max of 102, shaking chills and shortness of breath. His chest x-ray showed bilateral consolidation which is markedly on the left lung. Patient was recently discharged from this hospital after he was treated for upper GI bleeding due to gastric AVM. Patient has been treated as a case of healthcare associated pneumonia with vancomycin and Zosyn for the last 7 days. His fever, shortness of breath and cough has relatively subsided. Of note patient has underlying end-stage lung disease and he is on oxygen continuously at night and as needed through the day. This morning I seen patient sitting on recliner is awake alert still has mild distress which is his baseline. His vital signs are stable. And stable enough to be discharged. I will continue all his home medications and follow-up with his primary care physician in the coming 1 week. Physical Exam Vital Signs: Temp Pulse Resp BP Pulse Ox 97.7 F 85 18 165/65 H 96 05/18/18 07:28 05/18/18 07:28 05/18/18 07:28 05/18/18 07:28 05/18/18 07:28 Intake & Output 05/17/18 05/18/18 05/19/18 06:59 06:59 06:59 Intake Total 1437 2448 250 Balance 1437 2448 250 Weight 83.8 kg 85.2 kg General appearance: PRESENT: mild distress Eye exam: PRESENT: conjunctiva pink Mouth exam: PRESENT: moist Respiratory exam: PRESENT: decreased breath sounds, wheezes Cardiovascular exam: PRESENT: RRR. ABSENT: diastolic murmur, rubs, systolic murmur GI/Abdominal exam: PRESENT: normal bowel sounds, soft. ABSENT: distended, guarding, mass, organolmegaly, rebound, tenderness Neurological exam: PRESENT: alert, awake, oriented to time, oriented to situation Results Laboratory Results: 05/14/18 21:50 05/14/18 05:15 Impressions: Chest X-Ray 05/17/18 00:00 IMPRESSION: Minimal interval improvement of the left lung opacity. Qualifiers - * PATIENT BEING DISCHARGED WITH ANY OF THE FOLLOWING DIAGNOSIS: No
== END 2018-05-18 12:47 | disposition home or self-care (01) | DRG 871 ==
LOC: ER 14:29 → EH 17:08 → 3W 05-12 00:56
PROVIDERS: ADMIT Internal Medicine; ATTEND Internal Medicine
PROC: 30233N1 Transfusion of Nonautologous Red Blood Cells into Peripheral Vein, Percutaneous Approach (ICD-10-PCS; principal; 2018-05-14)
DX: A41.9 Sepsis, unspecified organism (principal); J18.9 Pneumonia, unspecified organism; J44.0 Chronic obstructive pulmonary disease with (acute) lower respiratory infection; N17.9 Acute kidney failure, unspecified; K55.20 Angiodysplasia of colon without hemorrhage; J44.9 Chronic obstructive pulmonary disease, unspecified; D50.0 Iron deficiency anemia secondary to blood loss (chronic); I10 Essential (primary) hypertension; Z87.891 Personal history of nicotine dependence; E78.5 Hyperlipidemia, unspecified; K21.9 Gastro-esophageal reflux disease without esophagitis; D64.9 Anemia, unspecified; Z88.1 Allergy status to other antibiotic agents; I25.10 Atherosclerotic heart disease of native coronary artery without angina pectoris; Z88.0 Allergy status to penicillin; Z79.899 Other long term (current) drug therapy
CPT/HCPCS: 36415; 36430; 71045; 71046; 80048; 80053; 80202; 81001; 82550; 82565; 82803; 83605; 84484; 85025; 85610; 85730; 86850; 86900; 86901; 86920; 87040; 87086; 93005; 93010; 94667; 94668; 94799; 96360; 99285; G8978-GP; G8979-GP; G8980-GP; J0456; J0696; J1720; J1940; J2543; J3370; J3490; J7030; J7060; P9016

== ENCOUNTER → 2018-05-29 | Outpatient (CLI) | payer MEDICARE, OTHER ==
--- NOTE | 2018-05-29 13:02 | RADIOLOGY REPORT (SQ) ---
EXAM DESCRIPTION: CHEST PA/LATERAL COMPLETED DATE/TIME: 05/29/2018 12:51 pm REASON FOR STUDY: BRONCHOPNEUMONIA, UNSPECIFIED ORGANISM COMPARISON: 05/17/2018 and 05/11/2018. EXAM PARAMETERS: NUMBER OF VIEWS: two views TECHNIQUE: Digital Frontal and Lateral radiographic views of the chest acquired. RADIATION DOSE: NA LIMITATIONS: none FINDINGS: LUNGS AND PLEURA: Hyperinflation. Chronic interstitial scarring. Previously seen infiltr ate in the left lung has cleared. There is a residual 1 cm nodular density in the left lung, overlap ping the anterior 5th rib. MEDIASTINUM AND HILAR STRUCTURES: No masses or contour abnormalities. HEART AND VASCULAR STRUCTURES: Heart normal size. No evidence for failure. BONES: No acute findings. HARDWARE: None in the chest. OTHER: No other significant finding. IMPRESSION: COPD WITH CHRONIC INTERSTITIAL SCARRING. PREVIOUSLY SEEN INFILTRATE IN THE LEFT LUNG [place] S CLEARED. HOWEVER THERE IS A RESIDUAL 1 CM NODULAR DENSITY CONCERNING FOR PULMONARY NODULE. RECOMM END FOLLOW-UP CT OF THE CHEST. TECHNICAL DOCUMENTATION: JOB ID: [id number] [employer]- All Rights Reserved Reading location - IP/workstation name: [email or web address]
[2018-05-29 13:07] LABS: ABSOLUTE EOSINOPHILS # (AUTO) 0.1 10^3/uL (0.0-0.6); ABSOLUTE LYMPHOCYTES (AUTO) 2.4 10^3/uL (0.5-4.7); ABSOLUTE MONOCYTES (AUTO) 1.1 10^3/uL (0.1-1.4); BASOPHILS % (AUTO) 0.5 % (0-2); EOSINOPHILS % (AUTO) 1.5 % (0-6); HEMATOCRIT 35.1 % (37.9-51.0); HEMOGLOBIN 11.8 g/dL (13.5-17.0); LYMPHOCYTES % (AUTO) 27.7 % (13-45); MEAN CORPUSCULAR HEMOGLOBIN 31.4 pg (27.0-33.4); MEAN CORPUSCULAR HGB CONC 33.5 g/dL (32.0-36.0); MEAN CORPUSCULAR VOLUME 94 fl (80-97); MONOCYTES % (AUTO) 12.5 % (3-13); PLATELET COUNT 264 10^3/uL (150-450); RED BLOOD COUNT 3.75 10^6/uL (4.35-5.55); RED CELL DISTRIBUTION WIDTH 19.1 % (11.5-14.0); SEGMENTED NEUTROPHILS % (AUTO) 57.8 % (42-78); TOTAL CELLS COUNTED % (AUTO) 100 %; WHITE BLOOD COUNT 8.6 10^3/uL (4.0-10.5)
== END ==
LOC: OD 12:28
PROVIDERS: ATTEND Physician Assistant
DX: J18.0 Bronchopneumonia, unspecified organism (principal)
CPT/HCPCS: 36415; 71046; 85025

== ENCOUNTER 2018-07-22 07:37 | Day surgery (SDC) | payer MEDICARE, OTHER ==
[~2018-07-22 07:37] MED LIST changes: -ALBUTEROL SULFATE 0.083% NEB 2.5 MG/3 ML AMPUL NEB ONE; +DIPHENHYDRAMINE HCL 50 MG/ML VIAL ONE; +EPINEPHRINE INJ 1 MG/10 ML DISP.SYRIN ONE; +FENTANYL CITRATE INJ/PF 100 MCG/2 ML AMPUL ONE; +FLUMAZENIL INJ 0.5 MG/5 ML VIAL ONE; +GLUCAGON,HUMAN RECOMB 1 MG INJ ONE; +MIDAZOLAM 2 MG/2 ML INJ ONE; +NALOXONE HCL INJ/PF 0.4 MG/1 ML SDV ONE; +ONDANSETRON HCL INJ/PF 4 MG/2 ML SDV ONE
--- NOTE | 2018-07-22 08:26 | Operative Report ---
Operative Report DATE OF SURGERY: 07/22/18 Operative Report: The risks benefits and alternatives of the procedure explained to the patient in detail and informed consent is obtained.A GIF Olympus video scope was inserted into the patient's mouth and hypopharynx, the esophagus is identified intubated and insufflated, the scope was then advanced through the esophagus stomach and duodenum, retroflexion maneuver is done, the esophagus stomach and first and second portions of the duodenum examined PREOPERATIVE DIAGNOSIS: Follow-up on esophageal and duodenal ulcers. Previous GI bleeding POSTOPERATIVE DIAGNOSIS: Healed esophageal and duodenal ulcers. Hiatal hernia. Mild residual gastritis status post biopsy OPERATION: EGD with biopsy SURGEON: ELVIS KUMAR ANESTHESIA: Moderate Sedation - 2 mg of Versed, 12.5 mcg of fentanyl. Conscious sedation monitored 30 minutes. TISSUE REMOVED OR ALTERED: As noted above. COMPLICATIONS: None. ESTIMATED BLOOD LOSS: None. INTRAOPERATIVE FINDINGS: As noted above. PROCEDURE: Patient tolerated the procedure well. No immediate postprocedure complications are noted. Patient discharged in good condition. Discharge date 07/22/2018. Discharge diet: Regular. Discharge activity: Regular. 2-3-week follow-up to discuss findings. Patient is instructed call the office or proceed to the emergency room should there be any further problems or questions. Wait on the pathology.
[2018-07-22 10:15] VITALS: BP 108/45
== END 2018-07-22 09:25 | disposition home or self-care (01) ==
LOC: END 07:37
PROVIDERS: ATTEND Internal Medicine Gastroenterology
DX: K22.10 Ulcer of esophagus without bleeding (principal); K29.70 Gastritis, unspecified, without bleeding; K44.9 Diaphragmatic hernia without obstruction or gangrene; Z88.0 Allergy status to penicillin; Z88.1 Allergy status to other antibiotic agents
CPT/HCPCS: 43239; 88305 ×2; J2250; J3010; J0171; J1200; J1610; J2310; J2405; J3490

== ENCOUNTER 2019-02-08 11:05 | Day surgery (SDC) | payer MEDICARE, OTHER ==
[~2019-02-08 11:05] MED LIST changes: -DIPHENHYDRAMINE HCL 50 MG/ML VIAL ONE; -EPINEPHRINE INJ 1 MG/10 ML DISP.SYRIN ONE; -FENTANYL CITRATE INJ/PF 100 MCG/2 ML AMPUL ONE; -FLUMAZENIL INJ 0.5 MG/5 ML VIAL ONE; -GLUCAGON,HUMAN RECOMB 1 MG INJ ONE; -MIDAZOLAM 2 MG/2 ML INJ ONE; -NALOXONE HCL INJ/PF 0.4 MG/1 ML SDV ONE; -ONDANSETRON HCL INJ/PF 4 MG/2 ML SDV ONE; +PROPOFOL INJ 200 MG/20 ML VIAL IV ONE
--- NOTE | 2019-02-08 12:56 | Operative Report ---
Operative Report DATE OF SURGERY: 02/08/19 Operative Report: The risks, benefits and alternatives of the procedure including the risk of bleeding, perforation requiring surgery have been explained to the patient in detail and informed consent has been obtained. Patient is placed in a left, lateral decubital position. Timeout was called. Propofol medication is administered. A rectal examination is done which did not reveal any masses, tears or fissures. An Olympus videoscope was introduced into the patient's re ctum. The scope was then carefully advanced all the way to the cecum. The cecum was identified by the usual anatomical landmarks including the ileocecal valve as well as the appendiceal office. Photodocumentation is obtained. The scope was then sequentially pulled back via the various segments of the colon including the ascending colon, hepatic flexure, transverse colon, splenic flexure, descending colon and finally into the rectosigmoid portions of the colon. Retroflexion maneuver is performed. PREOPERATIVE DIAGNOSIS: Abdominal pain followed by diarrhea followed by blood in the stool POSTOPERATIVE DIAGNOSIS: Right-sided colon polyp removed via snare polypectomy and retrieved. Diverticulosis. Left-sided inflammation suggestive of ischemic colitis status post biopsy. Internal hemorrhoids OPERATION: Colonoscopy with snare polypectomy. Colonoscopy with biopsy SURGEON: ELVIS KUMAR ANESTHESIA: LMAC TISSUE REMOVED OR ALTERED: As noted above. COMPLICATIONS: None. ESTIMATED BLOOD LOSS: None. INTRAOPERATIVE FINDINGS: As noted above. PROCEDURE: Patient tolerated the procedure well. No immediate postprocedure complications are noted. Patient discharged in good condition. Discharge date 02/08/2019. Discharge diet: Regular. Discharge activity: Regular. 2 to 3-week follow-up to discuss findings. Patient is instructed to call the office or proceed to the emergency room should there be any further questions. 5-year surveillance colonoscopy. Wait on the pathology.
[2019-02-08 13:28] VITALS: BP 128/53
== END 2019-02-08 12:33 | disposition home or self-care (01) ==
LOC: END 11:05 → EDBD 14:30
PROVIDERS: ATTEND Internal Medicine Gastroenterology
DX: K57.30 Diverticulosis of large intestine without perforation or abscess without bleeding (principal); K52.9 Noninfective gastroenteritis and colitis, unspecified; K64.8 Other hemorrhoids; D12.6 Benign neoplasm of colon, unspecified; K62.89 Other specified diseases of anus and rectum; K92.1 Melena; I10 Essential (primary) hypertension; Z79.899 Other long term (current) drug therapy
CPT/HCPCS: 45380; 45385; 88305 ×2; J2704

== ENCOUNTER → 2020-02-07 | Outpatient (CLI) | payer MEDICARE, OTHER ==
--- NOTE | 2020-02-07 17:53 | RADIOLOGY REPORT (SQ) ---
EXAM DESCRIPTION: CT HEAD WITHOUT IMAGES COMPLETED DATE/TIME: 02/07/2020 5:25 pm REASON FOR STUDY: I67.9 CEREBROVASCULAR DISEASE, UNSPECIFIED I67.9 CEREBROVASCULAR DISEASE, UNSPECI FIED COMPARISON: None. TECHNIQUE: Axial images acquired through the brain without intravenous contrast. Images reviewed wi th bone, brain and subdural windows. Additional sagittal and coronal reconstructions were generated. Images stored on PACS. All CT scanners at this facility use dose modulation, iterative reconstruction, and/or weight based d osing when appropriate to reduce radiation dose to as low as reasonably achievable (ALARA). [facility]: Dose Right [facility]: CareDose [facility]: Dose Right [facility]: Teradose 4D [facility]: Smart MAD Incubator RADIATION DOSE: CT Rad equipment meets quality standard of care and radiation dose reduction techniq ues were employed. CTDIvol: 53.2 mGy. DLP: 1044 mGy-cm.. LIMITATIONS: None. FINDINGS: VENTRICLES: The ventricles are prominent in appearance with asymmetric prominence of the right ventricle. The cisterns are patent. CEREBRUM: No masses. No hemorrhage. No midline shift. No evidence for acute infarction. Normal gra y/white matter differentiation. No areas of low density in the white matter. CEREBELLUM: No masses. No hemorrhage. No alteration of density. No evidence for acute infarction. EXTRAAXIAL SPACES: No fluid collections. No masses. ORBITS AND GLOBE: No intra- or extraconal masses. Normal contour of globe without masses. CALVARIUM: No fracture. PARANASAL SINUSES: Minimal mucoperiosteal thickening left maxillary sinus. No fluid. SOFT TISSUES: No mass or hematoma. OTHER: Mild atherosclerotic changes involving the cavernous portion of the internal carotid arteries . The patient is edentulous. IMPRESSION: 1. No acute intracranial abnormality. 2. Prominence of the ventricles. The possibility of underlying hydrocephalus is not entirely exclud ed. EVIDENCE OF ACUTE STROKE: NO. COMMENT: Quality ID # [id number]: Final reports with documentation of one or more dose reduction techniques (e.g., Automated exposure control, adjustment of the mA and/or kV according to patient size, use of iterative reconstruction technique) TECHNICAL DOCUMENTATION: JOB ID: [id number] 2010 [employer]- All Rights Reserved Reading location - IP/workstation name: [email or web address]
== END ==
LOC: RAD 16:42
PROVIDERS: ATTEND Physician Assistant
DX: I67.9 Cerebrovascular disease, unspecified (principal)
CPT/HCPCS: 70450

== ENCOUNTER → 2020-02-15 | Outpatient (CLI) | payer MEDICARE, OTHER ==
--- NOTE | 2020-02-15 13:52 | RADIOLOGY REPORT (SQ) ---
EXAM DESCRIPTION: CT HEAD WITHOUT IMAGES COMPLETED DATE/TIME: 02/15/2020 1:38 pm REASON FOR STUDY: I67.9 CEREBROVASCULAR DISEASE, UNSPECIFIED I67.9 CEREBROVASCULAR DISEASE, UNSPECI FIED COMPARISON: 02/07/2020 TECHNIQUE: Axial images acquired through the brain without intravenous contrast. Images reviewed wi th bone, brain and subdural windows. Additional sagittal and coronal reconstructions were generated. Images stored on PACS. All CT scanners at this facility use dose modulation, iterative reconstruction, and/or weight based d osing when appropriate to reduce radiation dose to as low as reasonably achievable (ALARA). [facility]: Dose Right [facility]: CareDose [facility]: Dose Right [facility]: Teradose 4D [facility]: Nurigene RADIATION DOSE: CT Rad equipment meets quality standard of care and radiation dose reduction techniq ues were employed. CTDIvol: 48.7 mGy. DLP: 1003 mGy-cm. mGy. LIMITATIONS: None. FINDINGS: VENTRICLES: Slightly prominent, possibly suggesting mild involutional atrophy. CEREBRUM: No masses. No hemorrhage. No midline shift. No evidence for acute infarction. Few scatte red areas of low density in the white matter most likely chronic small vessel ischemic changes. CEREBELLUM: No masses. No hemorrhage. No alteration of density. No evidence for acute infarction. EXTRAAXIAL SPACES: No fluid collections. No masses. ORBITS AND GLOBE: No intra- or extraconal masses. Normal contour of globe without masses. CALVARIUM: No fracture. PARANASAL SINUSES: There are some small mucous retention cyst in the maxillary sinuses. SOFT TISSUES: No mass or hematoma. OTHER: No other significant finding. IMPRESSION: Mild involutional changes with mild chronic microvascular ischemia. No acute intracrani al imaging findings. Mild maxillary sinus disease. EVIDENCE OF ACUTE STROKE: NO. COMMENT: Quality ID # [id number]: Final reports with documentation of one or more dose reduction techniques (e.g., Automated exposure control, adjustment of the mA and/or kV according to patient size, use of iterative reconstruction technique) TECHNICAL DOCUMENTATION: JOB ID: [id number] 2010 [employer]- All Rights Reserved Reading location - IP/workstation name: [email or web address]
== END ==
LOC: RAD 12:46
PROVIDERS: ATTEND Physician Assistant
DX: I67.9 Cerebrovascular disease, unspecified (principal)
CPT/HCPCS: 70450